=== PATIENT | female | born 1995 | race Caucasian/White ===

== ENCOUNTER 2017-12-14 09:37 | Emergency (ER) | payer MEDICAID, SELFPAY ==
[2017-12-14 09:38] VITALS: BP 118/67; PULSE 64; RESP 16; TEMP 36.6; O2SAT 100; BMI 23.6
--- NOTE | 2017-12-14 09:52 | CT_ITS ---
STUDY: CT ABDOMEN AND PELVIS WITH CONTRAST REASON FOR EXAM: Female, 22 years old. Vomiting and diarrhea. History of Crohn's disease. RADIATION DOSAGE (If Supplied By Facility): CTDIvol = ( 11.8 ) mGy, DLP = ( 677.42 ) mGycm TECHNIQUE: Transaxial images were obtained from the dome of the diaphragm to the symphysis pubis with oral contrast. 100 ml of Isovue 300 contrast was administered. Sagittal and coronal images were reconstructed. Individualized dose optimization techniques were used for this CT. COMPARISON: Comparison is made with prior examination dated July 04, 2016. FINDINGS: The visualized lung bases are unremarkable. The visualized portions of the heart are within normal limits. Normal liver. The patient is status post cholecystectomy. Normal spleen. Normal pancreas. Normal bilateral adrenal glands. Normal right kidney. Normal left kidney. Normal visualized stomach. There is evidence of a marked degree of circumferential wall thickening of the the ileum and terminal ileum with evidence of fluid surrounding the distal small bowel loops as well as fluid in the mesentery and in the pelvis. This is in keeping with recurrent Crohn's disease. This has progressed as compared to prior study. A large amount of fecal material is seen throughout the colon. Scattered sigmoid diverticulosis. There is non-visualization of the appendix. Normal abdominal aorta. Normal inferior vena cava. Normal retroperitoneum. Normal urinary bladder. Normal abdominal wall. Normal osseous structures. CT/Abdomen/Pelvis WITH Contrast IMPRESSION: Diffuse circumferential wall thickening of the ileum and terminal ileum with the thickening of the bowel wall. Fluid is seen in the surrounding mesentery as well as within the pelvis. Recurrent Crohn's disease is suspected. Large amount of fecal material is seen in the colon. Electronically Signed: Uriel Reece MD at 12:30 EDT Tel [phone], Service support ,
--- NOTE | 2017-12-14 10:01 | ED.DCSUM_ITS ---
- ER Visit Summary Date of Service: 12/14/17 Chief Complaint: Abdominal pain, nausea, vomiting, diarrhea History of Present Illness: The patient is a 22 F with history of Crohn's disease presents to the emergency department with worsening abdominal pain. The patient does follow with Dr. Cheatham at the [facility]. She is on Humira injections. Her last injection was 10 days ago. She states over the past 3 days, she has had worsening pain. States is mostly diffusely abdomen. She states that a few bouts of emesis without blood. She has also had some loose watery diarrhea. She denies any blood in the diarrhea. She states she has had some increasing cramping and pain. She denies any fevers or chills. She has had no history of bowel obstruction. The patient did have prior cholecystectomy, but no other abdominal surgery. She states her last prednisone use was about 6 months ago. Physical Examination: Vital signs reviewed General: Well-nourished, well-developed Head: Normocephalic, atraumatic Eyes: Pupils equal and reactive, extraocular muscles intact Neck, supple, no lymphadenopathy Heart: Regular rate and rhythm Respiratory: No distress, clear bilaterally Abdomen: Soft, diffusely tender without rebound or guarding, nondistended, no peritoneal signs Back: Nontender Extremities: Nontender, no edema, no cords Skin: Normal color no rash Neuro: Alert and oriented, no focal or lateralizing deficits Test Results: [] Emergency Department Course and Treatment: IV was established. Patient was given fluids, analgesics, and antiemetics. She did have improvement of her pain. Her labs are unremarkable. With her history of Crohn's, I did want to rule out acute intra-abdominal process. Patient underwent CT with both oral and IV contrast. This does demonstrate progression of her Crohn's. There is no obstruction. There is no perforation. On reevaluation she is resting comfortably. Patient is requesting outpatient management and I feel this is reasonable. She is given a dose of IV Solu-Medrol here. She will be kept on Cipro, analgesics, and prednisone. I did licensed mental health counselor her on the importance of following up with her GI doctor. She will be discharged home. Treatment Plan: [] Disposition: Discharge Impression: Acute Crohn's flare This note was generated with [employer] dictation software. It may contain incorrect words, spelling, and punctuation that were not noted in review of the chart prior to signing ED Disposition - Plan for ED Patient: Chief Complaint: Abd Pain Instructions: ED Inflam Bowel Disease Crohn Prescriptions: Oxycodone HCl/Acetaminophen [Percocet 5/325] 1 tab PO Q6H PRN PRN 3 Days #8 tab PRN Reason: Pain Prednisone [Deltasone] 40 mg PO DAILY #10 tab Ciprofloxacin [Cipro] 500 mg PO BID #14 tab Referrals: Torsten Cazares DO [Primary Care Provider] -
[2017-12-14 10:29] LABS: Absolute Lymphocyte Count 2.52 X10^3/ul (0.83-4.51); Absolute Neutrophil Count 7.1 X10^3/uL (2.0-7.7); Basophil# 0.04 X10^3/uL; Basophil% 0.4 % (0-1); Eosinophil# 0.07 X10^3/uL; Eosinophils% 0.7 % (0-5); Hematocrit 40.1 % (37-47); Hemoglobin 13.3 g/dl (12.0-15.0); Lymphocyte # 2.52 X10^3/ul (4.0); Lymphocyte % 24.7 % (19-41); Mean Corp Hgb Conc 33.2 g/gl (32-36); Mean Corpuscular Hgb 30.1 pg (27.0-32.0); Mean Corpuscular Volume 90.7 fL (81-99); Mean Platelet Vol. 9.1 fl (6.2-12.0); Monocyte# 0.49 X10^3/uL; Monocyte% 4.8 % (0-10); Neutrophil # 7.08 X10^3/uL (2.7-7.7); Neutrophil % 69.3 % (47-70); Platelet Count 246 K/mm3 (150-450); RBC Distribution Width CV 12.6 % (11.6-14.6); RBC Distribution Width SD 42.2 fl (35.1-43.9); Red Blood Count 4.42 M/mm3 (4.2-5.4); White Blood Count 10.2 K/mm3 (4.4-11.0)
[2017-12-14] MEDS: Ondansetron 4 MG/2 ML Vial IV (10:31)
[2017-12-14] MEDS: Morphine 4 MG/ML Syringe IV ×2 (10:32→12:47)
[2017-12-14] MEDS: 0.9% Normal Saline 1,000 ML 1000 ML IV (10:32)
[2017-12-14 10:38] LABS: POSITIVE COUNT NO; POSITIVE DIFFERENTIAL NO; POSITIVE MORPHOLOGY NO
[2017-12-14 10:42] LABS: ALB/GLOB Ratio 0.9 RATIO (0.9-2.4); AST(SGOT) 14 U/L (15-37); Alanine Aminotransfer ALT/SGPT 19 U/L (13-56); Albumin, Serum 3.7 g/dL (3.2-5.0); Alkaline Phosphatase 46 U/L (45-117); Anion Gap 6 (5-15); BUN 10 mg/dL (7-18); BUN/Creat Ratio 11.1 RATIO (10-20); Calcium,Total 8.8 mg/dL (8.5-10.1); Chloride 105 mmol/L (98-107); EST Glomerular Filtration Rate 81 mL/min (>60); Est Glom Filt Rate - Afr Amer 98 mL/min (>60); Estimated Creatinine Clearance 72.73 ml/min; Globulin 4.2 g/dL (2.2-4.2); Glucose 78 mg/dL (74-106); Potassium 4.1 mmol/L (3.5-5.1); Protein, Total 7.9 g/dL (6.4-8.2); Sodium Level 137 mmol/L (136-145)
--- NOTE | 2017-12-14 10:44 | ED.RN ---
TALKED TO [facility]. THEY SAID THEY ARE WAITING ON A FEMALE BED. HOPING TO HAVE A DISCHARGE TODAY.
[2017-12-14 11:09] LABS: Internal QC Validated? YES +Cl - CLEAR BKGD
[2017-12-14 11:10] LABS: Color, Urine Straw (Yellow); Glucose, Dipstick Normal (Normal); Ketone-Dipstick 5 mg/dl (Negative); Leukocyte Esterase-Dipstick 25 /ul (Negative); Nitrite-Dipstick Negative (Negative); Occult Blood-Urine 10 /ul (Negative); Protein-Dipstick Negative (Negative); Urine Bilirubin Dipstick Negative (Negative); Urine Clarity Clear (Clear); Urine Urobilinogen Normal (Normal)
[2017-12-14 11:13] LABS: Pregnancy, Urine Negative Negative
[2017-12-14 11:18] LABS: Bacteria RARE /hpf (None Seen); Mucous, Urine RARE /hpf (<or=2+); Red Blood Cells-Urine 0-5 SEEN /hpf (0-5); Squamous Epithelial Cells - UA 0-5 SEEN /hpf (5-10); White Blood Cells 0-5 SEEN /hpf (0-5)
[2017-12-14 12:00] VITALS: RESP 16
[2017-12-14] MEDS: MethylPREDNISolone 125 MG/2 ML Vial 80 MG IV (12:37)
[2017-12-14 13:46] VITALS: BP 112/63; PULSE 71; RESP 16; O2SAT 98
--- NOTE | 2017-12-14 13:47 | ED.RN ---
REVIEWED D/C INSTRUCTIONS, FOLLOW UP CARE, PRESCRIPTIONS, AND S/S THAT WOULD WARRANT A RETURN TO THE ED WITH PT. PT VERBALIZED AN UNDERSTANDING AND DENIES FURTHER QUESTIONS FOR THIS RN. PT SKIN P/W/D, RESP EVEN AND UNLABORED, PT A&O X 3, NO DISTRESS NOTED. PT AMBULATED OUT OF ED, GAIT STEADY.
== END 2017-12-14 13:48 | disposition home or self-care (01) ==
PROVIDERS: Emergency Provider Emergency Medicine; Family Provider Student in an Organized Health Care Education/Training Program; PCP Student in an Organized Health Care Education/Training Program
DX: K50.90 Crohn's disease, unspecified, without complications (principal); Z79.899 Other long term (current) drug therapy; Z90.49 Acquired absence of other specified parts of digestive tract
CPT/HCPCS: 74177; 80053; 81001; 81025; 85025; 96361; 96374; 96375; 96376; 99283; J7030; Q9967; A4216; J2405

== ENCOUNTER 2018-04-21 14:53 | Emergency (ER) | payer MEDICAID, SELFPAY ==
[2018-04-21 14:54] VITALS: BP 152/95; PULSE 79; RESP 16; TEMP 36.6; O2SAT 99; BMI 22.8
--- NOTE | 2018-04-21 15:08 | EKG12_ITS ---
Test Reason : CP Blood Pressure : / mmHG Vent. Rate : 075 BPM Atrial Rate : 075 BPM P-R Int : 134 ms QRS Dur : 084 ms QT Int : 384 ms P-R-T Axes : 056 045 035 degrees QTc Int : 428 ms Normal sinus rhythm with sinus arrhythmia Normal ECG Confirmed by TANNER GOLDBERG, RAVI ([id number]), editorial cartoonist NELIDA WEINBERG ([id number]) on 04/27/2018 2:41:59 PM Referred By: GABRIEL Confirmed By:RAVI HART MD
--- NOTE | 2018-04-21 15:10 | RAD_ITS ---
STUDY: X-RAY CHEST REASON FOR EXAM: Female, 23 years old. Chest pain. TECHNIQUE: Single AP portable view of the chest. COMPARISON: None. FINDINGS: The lungs are clear and expanded. There is no demonstrated pleural abnormality. Normal size heart. Normal mediastinum and kimberli. Normal visualized pulmonary arteries. Normal visualized aortic arch and descending thoracic aorta. Normal visualized thoracic spine. Normal visualized ribs, clavicles, and shoulders. There is no demonstrated abnormality of the visualized soft tissue structures of the upper abdomen. RAD/Chest 1 View (Portable) IMPRESSION: Normal x-ray examination of the chest. Electronically Signed: Uriel Reece MD at 15:41 EST , Service support ,
--- NOTE | 2018-04-21 15:12 | ED.VISSUMM ---
- ER Visit Summary Date of Service: 04/21/18 Chief Complaint: Chest pain History of Present Illness: The patient is a 23 F with a four-day history of intermittent chest pain. She describes it as sharp. It is mostly under the left breast, but sometimes on the right side of her chest. She does not feel short of breath. She has not had cough. She does report having a recent sinus infection. Physical Examination: Vital signs significant for blood pressure 152/95, otherwise unremarkable. Patient sitting upright in bed no acute distress. She is nontoxic appearing. Head neck examination is unremarkable. Heart is regular rate and rhythm. No murmurs. Lungs sounds are clear. She has mild reproducible anterior chest wall tenderness. No crepitus. Abdomen is soft nontender. Extremity examination was no calf tenderness or edema. Test Results: EKG is sinus at 75 with no sign of acute ischemia. CBC and chemistry studies normal. Troponin negative. D-dimer less than 0.27. test negative. Portable chest x-ray is unremarkable. Emergency Department Course and Treatment: Test results are discussed with the patient. I believe she likely has costochondritis from her recent sinus infection. She will be treated with a 4-day steroid burst. Treatment Plan: [] Disposition: Discharge Impression: Costochondritis This note was generated with [employer] dictation software. It may contain incorrect words, spelling, and punctuation that were not noted in review of the chart prior to signing ED Disposition - Plan for ED Patient: Chief Complaint: Chest Pain Referrals: Torsten Cazares DO [Primary Care Provider] -
[2018-04-21 15:35] VITALS: O2SAT 100
[2018-04-21] MEDS: 0.9% Normal Saline 1,000 ML 150 ML IV (15:39)
[2018-04-21 15:45] LABS: Absolute Lymphocyte Count 2.57 X10^3/ul (0.83-4.51); Absolute Neutrophil Count 3.3 X10^3/uL (2.0-7.7); Basophil# 0.05 X10^3/uL; Basophil% 0.8 % (0-1); Eosinophil# 0.04 X10^3/uL; Eosinophils% 0.6 % (0-5); Hematocrit 39.5 % (37-47); Hemoglobin 13.2 g/dl (12.0-15.0); Lymphocyte # 2.57 X10^3/ul (4.0); Lymphocyte % 40.6 % (19-41); Mean Corp Hgb Conc 33.4 g/gl (32-36); Mean Corpuscular Hgb 30.2 pg (27.0-32.0); Mean Corpuscular Volume 90.4 fL (81-99); Mean Platelet Vol. 9.2 fl (6.2-12.0); Monocyte# 0.41 X10^3/uL; Monocyte% 6.5 % (0-10); Neutrophil # 3.25 X10^3/uL (2.7-7.7); Neutrophil % 51.3 % (47-70); Platelet Count 249 K/mm3 (150-450); RBC Distribution Width CV 12.1 % (11.6-14.6); RBC Distribution Width SD 39.3 fl (35.1-43.9); Red Blood Count 4.37 M/mm3 (4.2-5.4); White Blood Count 6.3 K/mm3 (4.4-11.0)
[2018-04-21 15:48] LABS: POSITIVE COUNT NO; POSITIVE DIFFERENTIAL NO
[2018-04-21 15:49] LABS: POSITIVE MORPHOLOGY NO
[2018-04-21 16:05] LABS: Anion Gap 9 (5-15); BUN 13 mg/dL (7-18); BUN/Creat Ratio 14.9 RATIO (10-20); Calcium,Total 9.1 mg/dL (8.5-10.1); Chloride 105 mmol/L (98-107); Creatinine, Serum 0.87 mg/dL (0.55-1.02); EST Glomerular Filtration Rate 84 mL/min (>60); Est Glom Filt Rate - Afr Amer 102 mL/min (>60); Estimated Creatinine Clearance 78.18 ml/min; Glucose 120 mg/dL (74-106); Potassium 3.8 mmol/L (3.5-5.1); Sodium Level 138 mmol/L (136-145)
[2018-04-21 16:26] LABS: Pregnancy, Serum, hCG Quali. NEGATIVE Negative (0-9 Nonpreg)
[2018-04-21 16:36] LABS: D-Dimer Quantitative (DVT/PE) < 0.27 FEU/ug/m (0.27-0.49)
--- NOTE | 2018-04-21 16:39 | ED.DEP ---
ED Disposition - Plan for ED Patient: Disposition: Home or Assisted Living Chief Complaint: Chest Pain Instructions: ED Chest Pain Costochondritis Prescriptions: predniSONE tablet 40 mg PO DAILY #8 tablet Referrals: Torsten Cazares DO [Primary Care Provider] - 1 Week if not improving
[2018-04-21 16:49] VITALS: BP 113/82; PULSE 85; RESP 18; O2SAT 99
[2018-04-21] MEDS: predniSONE 20 MG Tablet 40 MG PO (16:50)
--- NOTE | 2018-04-21 17:03 | ED.DEP ---
ED Disposition - Plan for ED Patient: Disposition: Home or Assisted Living Chief Complaint: Chest Pain Instructions: ED Chest Pain Costochondritis Prescriptions: Methylprednisolone [Medrol] 4 mg PO DAILY #1 pack Referrals: Torsten Cazares DO [Primary Care Provider] - 1 Week if not improving
--- OUTSIDE RECORDS SUMMARY | 2018-06-23 17:40 | XMS RPT_ITS ---
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 / Z20.2(ICD-10) 01/13/2018 Active Unknown / Muriel CHEATHAM [facility] UNK(Unknown) JAY [place] Repository 12/14/2017 Unknown K50.10 - Crohn's Ramirez Hackett Active [place] disease of large Community intestine without Hospital complications / Repository K50.10(ICD-10) PROCEDURES PROCEDURES No Procedure Records FoundRESULTS RESULTS 12 LEAD ELECTROCARDIOGRAM Observed: 04/27/2018 Status: F Source: [place] 2:42 PM [facility] REPOSITORY [facility] Cardiovascular Services [address] [place] [address] 12 Lead EKG 04/21/18 1502 MR#: [id number] Acct: [id number] Name: JOAN HANSON Rep #: [id number] : 1995 23 From: Dave Hart MD Attending Dr: Status: DEP ER Ordering Dr: Hayde Haile MD Date: 04/21/18 Location: ED Sex: F C Admitted: Test Reason : CP Blood Pressure : / mmHG Vent. Rate : 075 BPM Atrial Rate : 075 BPM P-R Int : 134 ms QRS Dur : 084 ms QT Int : 384 ms P-R-T Axes : 056 045 035 degrees QTc Int : 428 ms Normal sinus rhythm with sinus arrhythmia Normal ECG Confirmed by TANNER GOLDBERG, DAVE ([id number]), supervising editor trailer NELIDA WEINBERG ([id number]) on 04/27/2018 2:41:59 PM Referred By: GABRIEL Confirmed By:DAVE HART MD 04/27/18 1442 Date Dave Hart MD CC: Hayde Haile MD; Torsten Art DO Signed EMERGENCY DEPARTMENT Observed: 04/21/2018 Status: F Source: [place] SUMMARY 11:12 PM [facility] REPOSITORY [facility] Medical Records Department [address] [place] [address] Emergency Department Summary 04/21/18 1512 MR#: [id number] Acct: [id number] Name: JOAN HANSON Rep #: [id number] : 1995 23 From: Hayde Haile MD PCP: Torsten Art DO Status: DEP ER - ER Visit Summary Date of Service: 04/21/18 Chief Complaint: Chest pain History of Present Illness: The patient is a 23 F with a four- day history of intermittent chest pain. She describes it as sharp. It is mostly under the left breast, but sometimes on the right side of her chest. She does not feel short of breath. She has not had cough. She does report having a recent sinus infection. Physical Examination: Vital signs significant for blood pressure 152/95, otherwise unremarkable. Patient sitting upright in bed no acute distress. She is nontoxic appearing. Head neck examination is unremarkable. Heart is regular rate and rhythm. No murmurs. Lungs sounds are clear. She has mild reproducible anterior chest wall tenderness. No crepitus. Abdomen is soft nontender. Extremity examination was no calf tenderness or edema. Test Results: EKG is sinus at 75 with no sign of acute ischemia. CBC and chemistry studies normal. Troponin negative. D-dimer less than 0.27. test negative. Portable chest x-ray is unremarkable. Emergency Department Course and Treatment: Test results are discussed with the patient. I believe she likely has costochondritis from her recent sinus infection. She will be treated with a 4-day steroid burst. Treatment Plan: [] Disposition: Discharge Impression: Costochondritis This note was generated with Emcore dictation software. It may contain incorrect words, spelling, and punctuation that were not noted in review of the chart prior to signing ED Disposition - Plan for ED Patient: Chief Complaint: Chest Pain Referrals: Torsten Cazares DO [Primary Care Provider] - What to do if you have Problems For any increased pain, shortness of breath, bleeding, nausea or vomiting, chest pain, or any unexpected problems, contact your Primary Care Provider. Call [facility] ([phone]) or report to the closest Emergency Room. Call 911 if necessary. 04/21/18 2312 <Electronically signed by Hayde Haile MD> Date Hayde Haile MD Cosigner Signature (If Indicated): Date CC: Torsten Art DO DISCHARGE INSTRUCTION Observed: 04/21/2018 Status: F Source: [place] 5:06 PM [facility] REPOSITORY [facility] Medical Records Department [address] [place] [address] Discharge Instruction 04/21/18 1703 MR#: [id number] Acct: [id number] Name: JOAN HANSON Rep #: [id number] : 1995 23 From: Hayde Haile MD PCP: Torsten Art DO Status: REG ER ED Disposition - Plan for ED Patient: Disposition: Home or Assisted Living Chief Complaint: Chest Pain Instructions: ED Chest Pain Costochondritis Prescriptions: Methylprednisolone [Medrol] 4 mg PO DAILY #1 pack Referrals: Torsten Cazares DO [Primary Care Provider] - 1 Week if not improving What to do if you have Problems For any increased pain, shortness of breath, bleeding, nausea or vomiting, chest pain, or any unexpected problems, contact your Primary Care Provider. Call [facility] ([phone]) or report to the closest Emergency Room. Call 911 if necessary. 04/21/18 1706 <Electronically signed by Hayde Haile MD> Date Hayde Haile MD Cosigner Signature (If Indicated): Date CC: Torsten Art DO DISCHARGE INSTRUCTION Observed: 04/21/2018 Status: F Source: [place] 4:40 PM [facility] REPOSITORY [facility] Medical Records Department [address] [place] [address] Discharge Instruction 04/21/18 1639 MR#: [id number] Acct: [id number] Name: JOAN HANSON Rep #: [id number] : 1995 23 From: Hayde Haile MD PCP: Torsten Art DO Status: REG ER ED Disposition - Plan for ED Patient: Disposition: Home or Assisted Living Chief Complaint: Chest Pain Instructions: ED Chest Pain Costochondritis Prescriptions: predniSONE tablet 40 mg PO DAILY #8 tablet Referrals: Torsten Cazares DO [Primary Care Provider] - 1 Week if not improving What to do if you have Problems For any increased pain, shortness of breath, bleeding, nausea or vomiting, chest pain, or any unexpected problems, contact your Primary Care Provider. Call [facility] ([phone]) or report to the closest Emergency Room. Call 911 if necessary. 01/23/19 1640 <Electronically signed by Hayde Haile MD> Date Hayde Haile MD Cosigner Signature (If Indicated): Date CC: Torsten Art, DO CBC W/DIFF, AUTOMATED Collected: 04/21/2018 Status: F Source: [place] 3:30 PM [facility] REPOSITORY TYPE CODE TESTS RESULT OUT OF RANGE REFERENCE UNITS LAB L100.1000 4.4-11.0 K/mm3 Normal WBC 6.3 LAB L100.1200 4.2-5.4 M/mm3 Normal RBC 4.37 LAB L100.1300 12.0-15.0 g/dl Normal HGB 13.2 LAB L100.1400 37-47 % Normal HCT 39.5 LAB L100.1500 81-99 fL Normal MCV 90.4 LAB L100.1600 27.0-32.0 pg Normal MCH 30.2 LAB L100.1700 32-36 g/gl Normal MCHC 33.4 LAB L100.1810 11.6-14.6 % Normal RDW CV 12.1 LAB L100.1820 35.1-43.9 fl Normal RDW SD 39.3 LAB L100.1900 150-450 K/mm3 Normal PLT 249 LAB L100.2000 6.2-12.0 fl Normal MPV 9.2 LAB L100.2100 47-70 % Normal NEUT% 51.3 LAB L100.2200 19-41 % Normal LY% 40.6 LAB L100.2300 0-10 % Normal MONO% 6.5 LAB L100.2400 0-5 % Normal EO% 0.6 LAB L100.2500 0-1 % Normal BASO% 0.8 LAB L100.2550 0.0-0.9 % Normal IM GRAN % 0.200 Result Comment: IG% - Immature Granulocytes (promyelocytes, myelocytes and metamyelocytes) > 1% indicates that a LEFT SHIFT is Present. LAB L100.2620 2.0-7.7 X10 3/uL Normal Absolute Neut 3.3 LAB L100.2720 0.83-4.51 X10 3/ul Normal Absolute Lymph 2.57 Performed By: #### L100.0100 #### [facility] [address] [place], [address] BASIC METABOLIC Collected: 04/21/2018 Status: F Source: [place] PROFILE (BMP) 3:30 PM [facility] REPOSITORY TYPE CODE TESTS RESULT OUT OF RANGE REFERENCE UNITS LAB L501.0100 74-106 mg/dL High GLU 120 Result Comment: Fasting Glucose result from 100 to 125 mg/dL suggests IMPAIRED HOMEOSTASIS per A.D.A. criteria. Please note revised GLUCOSE reference range effective 2017. LAB L501.1000 7-18 mg/dL Normal BUN 13 LAB L501.1100 0.55-1.02 mg/dL Normal CREAT,SERUM 0.87 Result Comment: The validity of the calculated GFR AND GFRAA in patients over 70 years has not been determined. Clinical correlation is essential. LAB L501.1110 >60 mL/min Normal EST GFR 84 Result Comment: Non- GFR Calc LAB L501.1115 >60 mL/min Normal EST GFR - AA 102 Result Comment: GFR Calc LAB L501.1255 ml/min Normal Estimated CRCL 78.18 LAB L501.1300 10-20 RATIO Normal BUN/CRE 14.9 LAB L501.2200 8.5-10 mg/dL Normal .1 CA 9.1 LAB L501.5300 136-14 mmol/L Normal 5 NA 138 LAB L501.5600 3.5-5. mmol/L Normal 1 K 3.8 LAB L501.5900 98-107 mmol/L Normal CL 105 LAB L501.6100 21.0-3 mmol/L Normal 2.0 CO2 24.0 LAB L501.6200 5-15 Normal GAP 9 Performed By: #### L500.2500, L501.4010 #### [facility] [address] [place], [address] TROPONIN-I Collected: 04/21/2018 Status: F Source: [place] 3[facility] PM [facility] TYPE CODE TESTS RESULT OUT OF RANGE REFERENCE UNITS LAB L501.4010 <0.045 ng/mL Normal < 0.015 TROPONIN-I Result Comment: TROPONIN-I EXPECTED VALUES <0.045 Negative 0.045 - 0.590 Consistent with Cardiac Damage > OR = 0.600 Critical Value Not every elevated troponin is indicative of AR. These values should be used with clinical judgement in examining the patient's clinical picture for diagnosis. To establish a diagnosis of AR versus myocardial injury, there must be a demonstrated rise and/or fall in the troponin values, in addition to ischemic symptoms, EKG changes, new regional wall motion abnormality, and/or angiographical evidence. PLEASE NOTE: REFERENCE RANGES EDITED 17 Performed By: #### L500.2500, L501.4010 #### [facility] [address] [place] [address], [phone] ,SERUM,HCG QUALI. Collected: Status: F Source: [place] 04/21/2018 3:30 PM [facility] REPOSITORY TYPE CODE TESTS RESULT OUT OF REFERENCE UNITS RANGE LAB L700.7000 0-9 Nonpreg Negative Normal HCGSQUAL NEGATIVE LAB L700.6700 =>Qualitative mIU/mL Normal HCG Qual < 1 triggr Performed By: #### L700.6800 #### [facility] [address] [place] [address], [phone] D-DIMER QUANTITATIVE Collected: 04/21/2018 Status: F Source: [place] (DVT/PE) 3:30 PM [facility] REPOSITORY TYPE CODE TESTS RESULT OUT OF RANGE REFERENCE UNITS LAB L300.8000 0.27-0.49 FEU/ug/m Low D-DIMER < 0.27 QUANT Result Comment: NORMAL D-Dimer level (<0.50) indicates no DVT or PE. Performed By: #### L300.8000 #### [facility] [address] [place] [address], [phone] CHEST 1 VIEW Observed: 04/21/2018 Status: F Source: [place] (PORTABLE) 3:10 PM [facility] REPOSITORY [facility] Imaging Services [address] [place] [address] Chest 1 View (Portable) MR#: [id number] Acct: [id number] Name: JOAN HANSON Rep #: [id number] : 1995 F 23 From: Uriel Reece MD PCP: Torsten Art DO Status: REG ER Study: Chest 1 View (Portable) Date of Exam: 04/21/18 Exam# [id number] Ordering Dr: Hayde Haile MD STUDY: X-RAY CHEST REASON FOR EXAM: Female, 23 years old. Chest pain. TECHNIQUE: Single AP portable view of the chest. COMPARISON: None. FINDINGS: The lungs are clear and expanded. There is no demonstrated pleural abnormality. Normal size heart. Normal mediastinum and kimberli. Normal visualized pulmonary arteries. Normal visualized aortic arch and descending thoracic aorta. Normal visualized thoracic spine. Normal visualized ribs, clavicles, and shoulders. There is no demonstrated abnormality of the visualized soft tissue structures of the upper abdomen. RAD/Chest 1 View (Portable) IMPRESSION: Normal x-ray examination of the chest. Electronically Signed: Uriel Reece MD at 15:41 EST , Service support , CC: Hayde Haile MD; Torsten Art DO Production Machine Operator: Signed GC/CHLAMYDIA AMP, UR Collected: 04/02/2018 Status: F Source: [place] 10:48 AM [facility] REPOSITORY TYPE CODE TESTS RESULT OUT OF REFERENCE UNITS RANGE LAB UGCAMP GC Negative Amplification, for Neisseria Ur gonorrhoeae by amplification. LAB UCLAMP Negative Chlamydia for Chlamydia Amplif, Ur trachomatis by amplification. Result Comment: For screening asymptomatic women, a vaginal swab specimen (APTIMA vaginal swab 134842) is optimal. Urine specimens have reduced sensitivity for Chlamydia trachomatis or Neisseria gonorrh oeae infection in female patients without symptoms. This test was developed and its performance characteristics determined by [facility]'s [facility] [place] ([facility]). It has not been cleared or approved by the FDA. [facility] is regulated under CLIA as qualified to perform high-complexity testing. This test is used for clinical purposes. It should not be regarded as investigational or for research. Performed By: #### UGCCT #### [facility] [address] [place], [place] [address] COMP METABOLIC PANEL Collected: 04/02/2018 Status: F Source: [place] 10:46 AM [facility] REPOSITORY TYPE CODE TESTS RESULT OUT OF REFERENCE UNITS RANGE LAB TP 6.3-8.0 g/dL Protein, High Total 8.2 LAB ALB 3.9-4.9 g/dL Albumin 4.7 LAB CA 8.5-10.2 mg/dL Calcium, Total 10.0 LAB TBIL 0.2-1.3 mg/dL Bilirubin, Total 0.3 LAB ALKP 34-123 U/L Alkaline Phosphatase 36 LAB AST 13-35 U/L AST 18 LAB GLU 74-99 mg/dL Glucose 84 Result Comment: The [place] Diabetes Association (ADA) provides guidance for cutoff values for fasting glucose and random glucose. The ADA defines fasting as no caloric intake for at least 8 hours. Fas ting plasma glucose results between 100 to 125 mg/dL indicate increased risk for diabetes (prediabetes). Fasting plasma glucose results greater than or equal to 126 mg/dL meet the criteria for diagnosis of diabetes. In the absence of unequivocal hyperglycemia, results should be confirmed by repeat testing. In a patient with classic symptoms of hyperglycemia or hyperglycemic crisis, random plasma glucose results greater than or equal to 200 mg/dL meet the criteria for diagnosis of diabetes. Reference: Standards of Medical Care in Diabetes 2016, [place] Diabetes Association. Diabetes Care. 2016.39(Suppl 1). LAB BUN 7-21 mg/dL BUN 9 LAB CRET 0.58-0.96 mg/dL Creatinine 0.89 LAB NA 136-144 mmol/L Sodium 137 LAB K 3.7-5.1 mmol/L Potassium 3.7 LAB CL 97-105 mmol/L Chloride 100 LAB CO2 22-30 mmol/L CO2 24 LAB AGAP 9-18 mmol/L Anion Gap 13 LAB ALT 7-38 U/L ALT 15 LAB GFRAA eGFR- Amer. >60 LAB GFRNAA . eGFR-All Other Races >60 Result Comment: eGFR (Estimated GFR) Units of measure: mL/min/1.73 meters squared eGFR is derived from the reexpressed MDRD Study equation using the following parameters: serum creatinine, age, gender and race. The creatinine assay has been calibrated to be traceable to IDMS. An eGFR <60 mL/min/1.73m2 for >3 months is consistent with chronic kidney disease. Refer to KDOQI guidelines for clinical interpretation. In patients with unstable renal function, e.g. those with acute kidney injury, the eGFR may not accurately reflect actual GFR. Performed By: #### CMP, SYPHGX, HIV12C #### [facility] [address] [id number] SYPHILIS IGG WITH Collected: 04/02/2018 Status: F Source: [facility] 10:46 [facility] REPOSITORY TYPE CODE TESTS RESULT OUT OF REFERENCE UNITS RANGE LAB SYPHQL Nonreactive Syphilis IgG, Nonreactive Qual Result Comment: No serological evidence of infection with T. pallidum. LAB SYPHLG AI Syphilis IgG <0.2 Result Comment: Antibody index is interpreted as follows: Non reactive SPECIMENS <=0.8 Weak reactive SPECIMENS 0.9 to 5.9 Reactive SPECIMENS >=6.0 Performed By: #### CMP, SYPHGX, HIV12C #### [facility] [address] [address] HIV 12 COMBO (AG/AB) Collected: 04/02/2018 Status: F Source: [place] 10:46 [facility] REPOSITORY TYPE CODE TESTS RESULT OUT OF REFERENCE UNITS RANGE LAB HVAGAB Non Reactive HIV Non Reactive 12 Ag/Ab Result Comment: (NOTE) HIV Information: [place] Rev. Code 3701.243(E): This information has been disclosed to you from confidential records protected from disclosure by state law. You shall make no further disclosure of this information without the specific, written, and informed release of the individual to whom it pertains, or as otherwise permitted by state law. A general authorization for the release of medical or other information is not sufficient for the purpose of the release of HIV test results or diagnoses. Performed By: #### CMP, SYPHGX, HIV12C #### [facility] [address] [place], [place] [address] HEPATITIS REMOTE PANEL Collected: 04/02/2018 Status: F Source: [place] 10:46 AM [facility] REPOSITORY TYPE CODE TESTS RESULT OUT OF REFERENCE UNITS RANGE LAB AHBCOT Negative Hep B Core Ab,Total Negative LAB AHCV Negative Hepatitis C Ab Negative IA LAB HBSAGR Negative HBsAg Negative LAB AHBSAG Negative HepB Surface Ab,Qual Negative Result Comment: NEGATIVE Performed By: #### HREMOP #### [facility] [address] [place], [place] [address] CNOV Observed: 04/02/2018 Status: COMPLETED Source: [place] 10:20 AM [facility] REPOSITORY Office Visit (FAMPWS) JOAN HANSON ([id number]) 1995 F Date Time Provider Department 04/02/18 10:20 AM [facility] During your visit today, we recorded the following information about you: Pulse Respiration Blood pressure Weight 74/minute 14/minute 140/80 58.5 kg Tanvi Francis APRN.CNP 04/02/2018 11:14 AM Signed This is a 23 year old female who presents today with: Patient presents with: std check HISTORY OF PRESENT ILLNESS: Joan Hanson is a 23 year old female. Patient presents with: std check Pt presents today for STD testing. Refers that she got a call from her ex-boyfriend that he was dx with hepatitis. Refers they were together over a year. Broke up two weeks ago. Was sexually active. Pt reports she doesn't have a hx of drug use, but that he had a hx of drug use, which he started back up -- so she broke up with him. Refers that she has chronic stomach problems d/t crohns, but nothing out of the ordinary. Refers that she also thinks that she has a sinus infection. Refers that she has a bad sinus headache. Refers that this started about 10 days, and nothing has changed. On Humira for crohn's. Taking OTC sudafed. Using humidifier. Refers a lot of PND. + frontal pain. No sore throat. No ear pain. + chills. Blowing dark mucus. No cough. Has been nauseated all morning. PAST MEDICAL HISTORY: PAST MEDICAL HISTORY Diagnosis Date - Anemia - Costochondritis - Crohn's disease (HCC) 01/2013 Dr. Cheatham PAST SURGICAL HISTORY Procedure Laterality Date - COLONOSCOPY 01/2013 - EGD 01/11/13 - L'SCOPE IDA W/CHOLANGIOGRAPHY 12/07/12 normal IOC - REMOVAL OF TONSILS,<10 Y/O 2002 Tonsillectomy ALLERGIES Patient has no known allergies. MEDICATIONS Current Outpatient Prescriptions: predniSONE (DELTASONE) 20 mg tablet Take 1 tablet by mouth twice daily. Adalimumab (HUMIRA PEN) 40 mg/0.8 mL pnkt INJECT 1 PEN (40MG) SUBCUTANEOUSLY EVERY 2 WEEKS. Levonorgestrel-Ethinyl Estrad (SRONYX) 0.1mg - 20mcg per tablet Take 1 tablet by mouth once daily. Adalimumab (HUMIRA PEN) 40 mg/0.8 mL pnkt Inject 0.8 mL subcutaneously every 2 weeks. No current facility-administered medications for this visit. FAMILY HISTORY Problem Relation Age of Onset - Hypertension Father - Diabetes Father - Ischemic Heart Disease Maternal Grandfather - Diabetes Maternal Grandfather - Cancer Maternal Grandfather lung - Stroke Mother when - Diabetes Maternal Grandmother - Diabetes Paternal Grandmother - Diabetes Paternal Grandfather Social History Marital status: Single Spouse name: Years of education: Number of children: 0 Social History Main Topics Smoking status: Never Smoker Smokeless tobacco: Never Used Comment: Both parents smoked in childhood home. Alcohol use: No Drug use: No Sexual activity: Yes Partners with: Male control/protection: Condom, Pill EXAM: BP 140/80 (BP Site: Left Arm, BP Position: Sitting, BP Cuff Size: Regular Adult) Pulse 74 Resp 14 Wt 58.5 kg (129 lb) BMI 23.98 kg/m? PHYSICAL EXAM: General Appearance: Well appearing, alert, in no acute distress, well-hydrated, well nourished.. Skin: Skin color, texture, turgor normal, no suspicious rashes or lesions. Head: Normocephalic, no masses, lesions, tenderness or abnormalities. Eyes: Anicteric sclera. Pupils are equally round and reactive to light. Extraocular movements are intact. . Ears: External ears normal, canals clear, Normal TMs bilaterally. Nose/Sinuses: Nares normal, septum midline, mucosa normal, no drainage. + frontal facial tenderness. Oropharynx: Lips, mucosa, and tongue normal, teeth and gums normal, oropharynx normal. Neck: Supple, no adenopathy Lungs: lungs clear to auscultation. No wheezing, rhonchi, rales. Heart: RRR without murmur, gallop, or rubs. No ectopy. Neurologic: Gait normal. ASSESSMENT/PLAN: 1. Exposure to venereal disease - ICD9: V01.6, ICD10: Z20.2 (primary diagnosis) Exposure to hepatitis. Will check labs. Discussed with patient, if negative, she should repeat testing in 3 months. - HEPATIC FUNCTION PNL - COMP METABOLIC PANEL - SYPHILIS IGG WITH CONF - HIV 1,2 COMBO (AG/AB) - GC/CHLAMYDIA AMPLIF, URINE - HEP REMOTE PANEL BL 2. Acute non-recurrent frontal sinusitis - ICD9: 461.1, ICD10: J01.10 - Will begin treatment with Augmentin 875 mg PO BID for 10 days, especially since immunocompromised d/t humira. - The patient should also be given OTC decongestants prn for the first 5-7 days of treatment. - Supportive care with plenty of fluids, rest, and analgesia prn. - AMOXICILLIN 875 MG-POTASSIUM CLAVULANATE 125 MG TABLET 3. Need for vaccination - ICD9: V05.9, ICD10: Z23 She will return after completing the antibiotic for the flu shot. - INFLUENZA VACCINE QUADRIVALENT AGE 3 YRS PLUS + IM Discussed treatment plan and patient voices understanding. Patient's questions answered appropriately. Medications and potential side effects were discussed and patient voices understanding. Return to the office as scheduled or as needed for worsening/no improvement. Tanvi Francis APRN.HANY Francis APRN.HANY 04/02/2018 10:28 AM Signed 1. Get labwork today. 2. Start augmentin twice daily X 10 days. 3. Return for flu shot after completing antibiotic. Get plenty of rest. Force fluids daily with water and juices. Nasal saline spray may help to keep nose open and moist: 2- 3 squirts each side every few hours. This also help to rinse out virus and bacteria causing infection. Cool mist humidifier in room during sleep. May use OTC Tylenol as direct for discomfort. For sore throat, warm salt water gargles, Chlorseptic spray, lozenges or other OTC sore throat remedies may help. Decongestants such as plain Sudafed or with expectorant such as Mucinex D may help with nasal stuffiness or facial and sinus pressure. Generics are fine. These are over the counter but require an adult signature. Oxymetolazine nasal decongestants (Afrin, Dristan, Codey's) may also help (in place of oral decongestants) but should not be used longer than 48-72 hours due to potential rebound congestion. OTC antihistamines such Benadryl (make cause drowsiness) or Zyrtec/ Clariten/ Elizabeth (non-drowsy) may help watery nasal drainage though they are generally not recommended because they dry mucus and make it sticky. The flow of mucus is important to help your body rid the virus. If cough keeps you awake at night, try OTC remedies first, such as Nyquil, Delsym, Codey's 44 or Mucinex DM. If this doesn't help you sleep, call the office for a prescription. Be careful if you are combining cough and cold medications that you aren't doubling the medicines. If you aren't sure: ask the pharmacist for help. Cough or sneeze into your sleeve to prevent spread of infected secretions. Wash your hands frequently. Try not to cough or sneeze on surfaces others might touch. If symptoms fail to improve in 5-7 days, fever > 100.5F, general worsening, or other concerning symptoms, return to [facility] or Torsten Cazares DO. Referring Provider: SELF [[id number]] Allergies As of Date: 04/02/2018 (No Known Allergies) Date Reviewed: 04/02/2018 Reviewed by: Reny Minaya Risk Manager - Fully Assessed Reason for Visit: std check [Other] Imm/Inj [58] Cmt: Flu Vaccine Reason For Visit History Recorded Primary Visit Diagnosis:Exposure to venereal disease [Z20.2] Other Visit Diagnoses:Acute non-recurrent frontal sinusitis [J01.10] Need for vaccination [Z23] Order(s):COMP METABOLIC PANEL [SQCMP] Order #: [id number] FUTURE SYPHILIS IGG WITH CONF [SQSYPHGX] Order #: [id number] FUTURE HIV 1,2 COMBO (AG/AB) [SQHIV12] Order #: [id number] FUTURE GC/CHLAMYDIA AMPLIF, URINE [SQUGCCT] Order #: [id number] FUTURE amoxicillin-clavulanic acid (AUGMENTIN) 875-125 mg per tabletTake 1 tablet by mouth twice daily for 10 days.Disp: 20 tabletRfl: 0 INFLUENZA VACCINE QUADRIVALENT AGE 3 YRS PLUS + IM [[id number]] Order #: [id number] FUTURE HEP REMOTE PANEL BL [SQHREMOP] Order #: [id number] FUTURE Prescriptions as of 04/02/2018 Sig: ADALIMUMAB 40 MG/0.8 ML SUBCU* INJECT 1 PEN (40MG) SUBCUTANE* LEVONORGESTREL-ETHINYL ESTRAD* Take 1 tablet by mouth once d* AMOXICILLIN 875 MG-POTASSIUM * Take 1 tablet by mouth twice * Medication notes this encounter ADALIMUMAB 40 MG/0.8 ML SUBCUTANEOUS PEN KIT >> Tanvi Francis APRN.SPECIAL EVENTS DRIVER 04/02/2018 10:17 AM duplicate Problem List As Of Date 04/02/2018 Noted Resolved Anemia [D64.9] INVALID FOR* More... Abdominal pain [R10.9] INVALID FOR*08/09/2013 Biliary dyskinesia [K82.8] INVALID FOR*08/09/2013 Abdominal pain, epigastric [R10.13] INVALID FOR*08/09/2013 Crohn's disease (HCC) [K50.90] INVALID FOR* More... control [Z30.9] INVALID FOR* More... Eczema [L30.9] INVALID FOR* Other instructions from your clinician: 1. Get labwork today. 2. Start augmentin twice daily X 10 days. 3. Return for flu shot after completing antibiotic. Get plenty of rest. Force fluids daily with water and juices. Nasal saline spray may help to keep nose open and moist: 2-3 squirts each side every few hours. This also help to rinse out virus and bacteria causing infection. Cool mist humidifier in room during sleep. May use OTC Tylenol as direct for discomfort. For sore throat, warm salt water gargles, Chlorseptic spray, lozenges or other OTC sore throat remedies may help. Decongestants such as plain Sudafed or with expectorant such as Mucinex D may help with nasal stuffiness or facial and sinus pressure. Generics are fine. These are over the counter but require an adult signature. Oxymetolazine nasal decongestants (Afrin, Dristan, Codey's) may also help (in place of oral decongestants) but should not be used longer than 48-72 hours due to potential rebound congestion. OTC antihistamines such Benadryl (make cause drowsiness) or Zyrtec/ Clariten/ Elizabeth (non-drowsy) may help watery nasal drainage though they are generally not recommended because they dry mucus and make it sticky. The flow of mucus is important to help your body rid the virus. If cough keeps you awake at night, try OTC remedies first, such as Nyquil, Delsym, Codey's 44 or Mucinex DM. If this doesn't help you sleep, call the office for a prescription. Be careful if you are combining cough and cold medications that you aren't doubling the medicines. If you aren't sure: ask the pharmacist for help. Cough or sneeze into your sleeve to prevent spread of infected secretions. Wash your hands frequently. Try not to cough or sneeze on surfaces others might touch. If symptoms fail to improve in 5-7 days, fever > 100.5F, general worsening, or other concerning symptoms, return to [facility] or Torsten Cazares DO. Prescriptions ordered this encounter Disp Refills Start End AMOXICILLIN 875 MG-POTASSIUM CLAVULA* 20 t* 0 04/02/2018 04/12/2018 Route: ORAL Sig: Take 1 tablet by mouth twice daily for 10 days. Medications Discontinued During This Encounter predniSONE (DELTASONE) 20 mg tablet 28 t* 1 12/14/2017 04/02/2018 Route: ORAL Sig: Take 1 tablet by mouth twice daily. Disc: Course of therapy completed Adalimumab (HUMIRA PEN) 40 mg/0.8 mL* 2 Pen 10 01/13/2017 04/02/2018 Route: SUBCUTANEOUS Sig: Inject 0.8 mL subcutaneously every 2 weeks. Disc: Other Encounter Status:Closed by TANVI FRANCIS CNP on 04/02/18 PROGRESS Observed: 04/02/2018 Status: COMPLETED Source: [place] 10:12 AM [facility] RE[facility] HNO ID: [id number] Author: Tanvi Jade) Penny Service: (none) Author Type: Nurse Practitioner Type: Progress Notes Filed: 04/02/2018 11:14 AM Note Text: This is a 23 year old female who presents today with: Patient presents with: std check HISTORY OF PRESENT ILLNESS: Joan Hanson is a 23 year old female. Patient presents with: std check Pt presents today for STD testing. Refers that she got a call from her ex-boyfriend that he was dx with hepatitis. Refers they were together over a year. Broke up two weeks ago. Was sexually active. Pt reports she doesn't have a hx of drug use, but that he had a hx of drug use, which he started back up -- so she broke up with him. Refers that she has chronic stomach problems d/t crohns, but nothing out of the ordinary. Refers that she also thinks that she has a sinus infection. Refers that she has a bad sinus headache. Refers that this started about 10 days, and nothing has changed. On Humira for crohn's. Taking OTC sudafed. Using humidifier. Refers a lot of PND. + frontal pain. No sore throat. No ear pain. + chills. Blowing dark mucus. No cough. Has been nauseated all morning. PAST MEDICAL HISTORY: PAST MEDICAL HISTORY Diagnosis Date - Anemia - Costochondritis - Crohn's disease (HCC) 01/2013 Dr. Cheatham PAST SURGICAL HISTORY Procedure Laterality Date - COLONOSCOPY 01/2013 - EGD 01/11/13 - L'SCOPE IDA W/CHOLANGIOGRAPHY 12/07/12 normal IOC - REMOVAL OF TONSILS,<12 Y/O 2002 Tonsillectomy ALLERGIES Patient has no known allergies. MEDICATIONS Current Outpatient Prescriptions: predniSONE (DELTASONE) 20 mg tablet Take 1 tablet by mouth twice daily. Adalimumab (HUMIRA PEN) 40 mg/0.8 mL pnkt INJECT 1 PEN (40MG) SUBCUTANEOUSLY EVERY 2 WEEKS. Levonorgestrel-Ethinyl Estrad (SRONYX) 0.1mg - 20mcg per tablet Take 1 tablet by mouth once daily. Adalimumab (HUMIRA PEN) 40 mg/0.8 mL pnkt Inject 0.8 mL subcutaneously every 2 weeks. No current facility-administered medications for this visit. FAMILY HISTORY Problem Relation Age of Onset - Hypertension Father - Diabetes Father - Ischemic Heart Disease Maternal Grandfather - Diabetes Maternal Grandfather - Cancer Maternal Grandfather lung - Stroke Mother when - Diabetes Maternal Grandmother - Diabetes Paternal Grandmother - Diabetes Paternal Grandfather Social History Marital status: Single Spouse name: Years of education: Number of children: 0 Social History Main Topics Smoking status: Never Smoker Smokeless tobacco: Never Used Comment: Both parents smoked in childhood home. Alcohol use: No Drug use: No Sexual activity: Yes Partners with: Male control/protection: Condom, Pill EXAM: BP 140/80 (BP Site: Left Arm, BP Position: Sitting, BP Cuff Size: Regular Adult) Pulse 74 Resp 14 Wt 58.5 kg (129 lb) BMI 23.98 kg/m? PHYSICAL EXAM: General Appearance: Well appearing, alert, in no acute distress, well-hydrated, well nourished.. Skin: Skin color, texture, turgor normal, no suspicious rashes or lesions. Head: Normocephalic, no masses, lesions, tenderness or abnormalities. Eyes: Anicteric sclera. Pupils are equally round and reactive to light. Extraocular movements are intact. . Ears: External ears normal, canals clear, Normal TMs bilaterally. Nose/Sinuses: Nares normal, septum midline, mucosa normal, no drainage. + frontal facial tenderness. Oropharynx: Lips, mucosa, and tongue normal, teeth and gums normal, oropharynx normal. Neck: Supple, no adenopathy Lungs: lungs clear to auscultation. No wheezing, rhonchi, rales. Heart: RRR without murmur, gallop, or rubs. No ectopy. Neurologic: Gait normal. ASSESSMENT/PLAN: 1. Exposure to venereal disease - ICD9: V01.6, ICD10: Z20.2 (primary diagnosis) Exposure to hepatitis. Will check labs. Discussed with patient, if negative, she should repeat testing in 3 months. - HEPATIC FUNCTION PNL - COMP METABOLIC PANEL - SYPHILIS IGG WITH CONF - HIV 1,2 COMBO (AG/AB) - GC/CHLAMYDIA AMPLIF, URINE - HEP REMOTE PANEL BL 2. Acute non-recurrent frontal sinusitis - ICD9: 461.1, ICD10: J01.10 - Will begin treatment with Augmentin 875 mg PO BID for 10 days, especially since immunocompromised d/t humira. - The patient should also be given OTC decongestants prn for the first 5-7 days of treatment. - Supportive care with plenty of fluids, rest, and analgesia prn. - AMOXICILLIN 875 MG-POTASSIUM CLAVULANATE 125 MG TABLET 3. Need for vaccination - ICD9: V05.9, ICD10: Z23 She will return after completing the antibiotic for the flu shot. - INFLUENZA VACCINE QUADRIVALENT AGE 3 YRS PLUS + IM Discussed treatment plan and patient voices understanding. Patient's questions answered appropriately. Medications and potential side effects were discussed and patient voices understanding. Return to the office as scheduled or as needed for worsening/no improvement. Tanvi Francis APRN.HANY LEACHN Observed: 02/01/2018 Status: COMPLETED Source: [place] 12:00 AM [facility] REPOSITORY Telephone (GASTTW) JOAN HASNON ([id number]) 1995 F Date Time Provider Department 02/01/18 JAY CHEATHAM During your visit today, we recorded the following information about you: Blake Kang RN, RN 02/01/2018 9:35 AM Signed Received PA request form from [facility] for Humira. Forms filled out, faxed back. Received confirmation that fax was sent. Blake Kang RN February 01, 2018 9:34 AM Blake Kang RN, RN 02/01/2018 12:31 PM Signed Received approval for Humira from [employer]. Approved for 12 months. Scanned into pt chart. Blake Kang RN February 01, 2018 12:31 PM Allergies As of Date: 02/01/2018 (No Known Allergies) Date Reviewed: 01/13/2018 Reviewed by: Yamilex Ribeiro LPN - Fully Assessed Reason for Visit: Insurance Authorization [[id number]] Prescriptions as of 02/01/2018 Sig: PREDNISONE 20 MG TABLET Take 1 tablet by mouth twice * Patient not taking: Reported on 12/31/2017 ADALIMUMAB 40 MG/0.8 ML SUBCU* INJECT 1 PEN (40MG) SUBCUTANE* Patient not taking: Reported on 01/13/2018 LEVONORGESTREL-ETHINYL ESTRAD* Take 1 tablet by mouth once d* ADALIMUMAB 40 MG/0.8 ML SUBCU* Inject 0.8 mL subcutaneously * Problem List As Of Date 02/01/2018 Noted Resolved Anemia [D64.9] INVALID FOR* More... Abdominal pain [R10.9] INVALID FOR*08/09/2013 Biliary dyskinesia [K82.8] INVALID FOR*08/09/2013 Abdominal pain, epigastric [R10.13] INVALID FOR*08/09/2013 Crohn's disease (HCC) [K50.90] INVALID FOR* More... control [Z30.9] INVALID FOR* More... Eczema [L30.9] INVALID FOR* Encounter Status:Closed by BLAKE KANG on 02/01/18 PROGRESS Observed: 01/13/2018 Status: COMPLETED Source: [place] 3:03 PM [facility] REPOSITORY O ID: [id number] Author: Jay Cheatham Service: (none) Author Type: Physician Type: Progress Notes Filed: 01/13/2018 3:06 PM Note Text: CC: Miss. Hanson returns today for follow up of her small bowel Crohn's disease HPI: Joan Hanson is a 22 year old female. The patient was diagnosed with small bowel Crohn's disease and has been doing rather well on Humira injections. In the last year she had 6 flares of small bowel Crohn's-2 of them were treated with a prednisone taper. The patient feels very strongly that these flares were due to the stress of an unpleasant romantic relationship which she has since terminated. She feels back to baseline since ending that relationship. Whether or not any of these abdominal pain issues were truly Crohn's flares is unclear. PAST MEDICAL HISTORY Diagnosis Date - Anemia - Costochondritis - Crohn's disease (HCC) 01/2013 Dr. Cheatham PAST SURGICAL HISTORY Procedure Laterality Date - COLONOSCOPY 01/2013 - EGD 01/11/13 - L'SCOPE IDA W/CHOLANGIOGRAPHY 12/07/12 normal IOC - REMOVAL OF TONSILS,<12 Y/O 2003 Tonsillectomy SOCIAL HX: Social History Substance Use Topics - Smoking status: Never Smoker - Smokeless tobacco: Never Used Comment: Both parents smoked in childhood home. - Alcohol use No FAMILY HISTORY Problem Relation Age of Onset - Hypertension Father - Diabetes Father - Ischemic Heart Disease Maternal Grandfather - Diabetes Maternal Grandfather - Cancer Maternal Grandfather lung - Stroke Mother when - Diabetes Maternal Grandmother - Diabetes Paternal Grandmother - Diabetes Paternal Grandfather ALLERGIES: ALLERGIES No Known Allergies MEDICATIONS: Levonorgestrel-Ethinyl Estrad (SRONYX) 0.1mg - 20mcg per tablet Take 1 tablet by mouth once daily. Adalimumab (HUMIRA PEN) 40 mg/0.8 mL pnkt Inject 0.8 mL subcutaneously every 2 weeks. predniSONE (DELTASONE) 20 mg tablet Take 1 tablet by mouth twice daily. Adalimumab (HUMIRA PEN) 40 mg/0.8 mL pnkt INJECT 1 PEN (40MG) SUBCUTANEOUSLY EVERY 2 WEEKS. ROS: All systems reviewed and negative unless otherwise noted above. PHYSICAL EXAM: VITALS: BP 139/80 Pulse 69 Ht 5' 1.5 (1.56m) Wt 134 lb 12.8 oz (61.1kg) LMP 12/17/2017 BMI 25.06 kg/(m2). General Appearance: Well appearing, alert, in no acute distress, well-hydrated, well nourished.. Skin: Skin color, texture, turgor normal, no suspicious rashes or lesions. Lungs: Lungs clear to auscultation. No wheezing, rhonchi, rales. Heart: RRR without murmur, gallop, or rubs. No ectopy. Abdomen: Normal abdominal exam, Abdomen soft, non-tender. Bowel sounds normal. No masses, organomegaly. IMPRESSION: Small bowel Crohn's disease maintained on Humira injections. The recently described flares may not actually have been Crohn's flares at all but rather IBS-like symptoms related to stress PLAN: As the patient is currently asymptomatic, we'll just continue her Humira for now. Should she develop a subsequent episode of abdominal pain, would get a CT enterography to carefully examine the small bowel This note was partially generated using [employer] voice recognition system, and there may be some incorrect words, spellings, and punctuation that were not noted in checking the note before saving. Jay Cheatham MD CNOV Observed: 01/13/2018 Status: COMPLETED Source: [place] 2:30 PM [facility] REPOSITORY Office Visit (GASTTW) JOAN HANSON ([id number]) 1995 F Date Time Provider Department 01/13/18 2:30 PM JAY CHEATHAM GASTAdiliaW During your visit today, we recorded the following information about you: Pulse Blood pressure Weight Height 69/minute 139/80 61.1 kg 1.562 m Jay Cheatham MD 01/13/2018 3:06 PM Signed CC: Miss. Hanson returns today for follow up of her small bowel Crohn's disease HPI: Joan Hanson is a 22 year old female. The patient was diagnosed with small bowel Crohn's disease and has been doing rather well on Humira injections. In the last year she had 6 flares of small bowel Crohn's-2 of them were treated with a prednisone taper. The patient feels very strongly that these flares were due to the stress of an unpleasant romantic relationship which she has since terminated. She feels back to baseline since ending that relationship. Whether or not any of these abdominal pain issues were truly Crohn's flares is unclear. PAST MEDICAL HISTORY Diagnosis Date - Anemia - Costochondritis - Crohn's disease (HCC) 01/2013 Dr. Cheatham PAST SURGICAL HISTORY Procedure Laterality Date - COLONOSCOPY 01/2013 - EGD 01/11/13 - L'SCOPE IDA W/CHOLANGIOGRAPHY 12/07/12 normal IOC - REMOVAL OF TONSILS,<12 Y/O 2003 Tonsillectomy SOCIAL HX: Social History Substance Use Topics - Smoking status: Never Smoker - Smokeless tobacco: Never Used Comment: Both parents smoked in childhood home. - Alcohol use No FAMILY HISTORY Problem Relation Age of Onset - Hypertension Father - Diabetes Father - Ischemic Heart Disease Maternal Grandfather - Diabetes Maternal Grandfather - Cancer Maternal Grandfather lung - Stroke Mother when - Diabetes Maternal Grandmother - Diabetes Paternal Grandmother - Diabetes Paternal Grandfather ALLERGIES: ALLERGIES No Known Allergies MEDICATIONS: Levonorgestrel-Ethinyl Estrad (SRONYX) 0.1mg - 20mcg per tablet Take 1 tablet by mouth once daily. Adalimumab (HUMIRA PEN) 40 mg/0.8 mL pnkt Inject 0.8 mL subcutaneously every 2 weeks. predniSONE (DELTASONE) 20 mg tablet Take 1 tablet by mouth twice daily. Adalimumab (HUMIRA PEN) 40 mg/0.8 mL pnkt INJECT 1 PEN (40MG) SUBCUTANEOUSLY EVERY 2 WEEKS. ROS: All systems reviewed and negative unless otherwise noted above. PHYSICAL EXAM: VITALS: BP 139/80 Pulse 69 Ht 5' 1.5 (1.56m) Wt 134 lb 12.8 oz (61.1kg) LMP 12/17/2017 BMI 25.06 kg/(m2). General Appearance: Well appearing, alert, in no acute distress, well-hydrated, well nourished.. Skin: Skin color, texture, turgor normal, no suspicious rashes or lesions. Lungs: Lungs clear to auscultation. No wheezing, rhonchi, rales. Heart: RRR without murmur, gallop, or rubs. No ectopy. Abdomen: Normal abdominal exam, Abdomen soft, non-tender. Bowel sounds normal. No masses, organomegaly. IMPRESSION: Small bowel Crohn's disease maintained on Humira injections. The recently described flares may not actually have been Crohn's flares at all but rather IBS-like symptoms related to stress PLAN: As the patient is currently asymptomatic, we'll just continue her Humira for now. Should she develop a subsequent episode of abdominal pain, would get a CT enterography to carefully examine the small bowel This note was partially generated using [employer] voice recognition system, and there may be some incorrect words, spellings, and punctuation that were not noted in checking the note before saving. Jay Cheatham MD Referring Provider: SELF [[id number]] Allergies As of Date: 01/13/2018 (No Known Allergies) Date Reviewed: 01/13/2018 Reviewed by: Yamilex Ribeiro LPN - Fully Assessed Reason for Visit: Crohns [292] Cmt: follow up Primary Visit Diagnosis:Crohn's disease of small intestine without complication (HCC) [K50.00] Prescriptions as of 01/13/2018 Sig: LEVONORGESTREL-ETHINYL ESTRAD* Take 1 tablet by mouth once d* ADALIMUMAB 40 MG/0.8 ML SUBCU* Inject 0.8 mL subcutaneously * PREDNISONE 20 MG TABLET Take 1 tablet by mouth twice * Patient not taking: Reported on 12/31/2017 ADALIMUMAB 40 MG/0.8 ML SUBCU* INJECT 1 PEN (40MG) SUBCUTANE* Patient not taking: Reported on 01/13/2018 Problem List As Of Date 01/13/2018 Noted Resolved Anemia [D64.9] INVALID FOR* More... Abdominal pain [R10.9] INVALID FOR*08/09/2013 Biliary dyskinesia [K82.8] INVALID FOR*08/09/2013 Abdominal pain, epigastric [R10.13] INVALID FOR*08/09/2013 Crohn's disease (HCC) [K50.90] INVALID FOR* More... control [Z30.9] INVALID FOR* More... Eczema [L30.9] INVALID FOR* Encounter Status:Closed by JAY CHEATAHM MD on 01/13/18 PROGRESS Observed: 12/31/2017 Status: COMPLETED Source: [place] 1:35 PM [facility] REPOSIT[facility] O ID: [id number] Author: Terence Oviedo Service: (none) Author Type: Nurse Practitioner Type: Progress Notes Filed: 12/31/2017 3:29 PM Note Text: Subjective HPI HPI Joan Hanson is a 22 year old female who presents today for CC of left knee pain. This started 1 day ago. Has tried nothing for relief. Symptoms are worsened by rom of knee. Risk factors none, no injury known to cause, no hx of injury/surgery to left knee. Denies possibility of being . Needs work note. .Patient presents with: left knee pain with swelling: x 1 day PAST MEDICAL HISTORY Diagnosis Date - Anemia - Costochondritis - Crohn's disease (HCC) 01/2013 Dr. Cheatham PAST SURGICAL HISTORY Procedure Laterality Date - COLONOSCOPY 01/2013 - EGD 01/11/13 - L'SCOPE IDA W/CHOLANGIOGRAPHY 12/07/12 normal IOC - REMOVAL OF TONSILS,<12 Y/O 2003 Tonsillectomy ALLERGIES Patient has no known allergies. MEDICATIONS Adalimumab (HUMIRA PEN) 40 mg/0.8 mL pnkt INJECT 1 PEN (40MG) SUBCUTANEOUSLY EVERY 2 WEEKS. Levonorgestrel-Ethinyl Estrad (SRONYX) 0.1mg - 20mcg per tablet Take 1 tablet by mouth once daily. Adalimumab (HUMIRA PEN) 40 mg/0.8 mL pnkt Inject 0.8 mL subcutaneously every 2 weeks. predniSONE (DELTASONE) 20 mg tablet Take 1 tablet by mouth twice daily. FAMILY HISTORY Problem Relation Age of Onset - Hypertension Father - Diabetes Father - Ischemic Heart Disease Maternal Grandfather - Diabetes Maternal Grandfather - Cancer Maternal Grandfather lung - Stroke Mother when - Diabetes Maternal Grandmother - Diabetes Paternal Grandmother - Diabetes Paternal Grandfather Social History Substance Use Topics - Smoking status: Never Smoker - Smokeless tobacco: Never Used Comment: Both parents smoked in childhood home. - Alcohol use No Review of Systems Constitutional: Negative for chills and fever. Musculoskeletal: Positive for joint pain. Negative for myalgias. Skin: Negative for itching. Objective Blood pressure 132/88, pulse 83, temperature 37.3 ?C (99.1 ?F), temperature source Left Tympanic, resp. rate 16, weight 59.1 kg (130 lb 3.2 oz), last menstrual period 12/17/2017, SpO2 99 %. Physical Exam Constitutional: She is oriented to person, place, and time and well-developed, well-nourished, and in no distress. Non-toxic appearance. She does not have a sickly appearance. No distress. HENT: Head: Normocephalic and atraumatic. Cardiovascular: Pulses: Dorsalis pedis pulses are 2+ on the left side. Posterior tibial pulses are 2+ on the left side. Pulmonary/Chest: Effort normal. No accessory muscle usage. No respiratory distress. Musculoskeletal: Left knee: She exhibits normal range of motion, no swelling, no effusion, no ecchymosis, no deformity, no laceration, no erythema, normal alignment, no LCL laxity, no bony tenderness, normal meniscus and no MCL laxity. Tenderness found. Medial joint line and lateral joint line tenderness noted. No patellar tendon tenderness noted. Left knee compared to right Neurological: She is alert and oriented to person, place, and time. Skin: She is not diaphoretic. ASSESSMENT/PLAN: 1. Acute pain of left knee - ICD9: 719.46, ICD10: M25.562 -given stretches/exercises -Rest, Ice, Compression, Elevation discussed -follow up with primary care if symptoms persist/worsen in 1-2 -discussed xray, declined -nancy wrap applied, crutches given - METHYLPREDNISOLONE 4 MG TABLETS IN A DOSE PACK Prescription instructions reviewed with patient as applicable. Patient advised if symptoms do not improve or if symptoms worsen sooner, to contact the office for further evaluation by their primary care physician. Potential red flag symptoms discussed with the patient. Reviewed appropriate action plan to take if red flag symptoms occur. Patient agreeable to treatment plan. TAVO GaOV Observed: 12/31/2017 Status: COMPLETED Source: [place] 1:15 PM [facility] REPOSITORY Office Visit (WSTR) JOAN HANSON ([id number]) 1995 F Date Time Provider Department 12/31/17 1:15 PM TERENCE OVIEDO (HANY) WSTR During your visit today, we recorded the following information about you: Temperature Pulse Respiration Blood pressure 99.1 degrees 83/minute 16/minute 132/88 Weight Last Period 59.1 kg 12/17/17 Terence Oviedo APRN.CNP 12/31/2017 3:29 PM Signed Subjective HPI HPI Joan Urbinatheo is a 22 year old female who presents today for CC of left knee pain. This started 1 day ago. Has tried nothing for relief. Symptoms are worsened by rom of knee. Risk factors none, no injury known to cause, no hx of injury/surgery to left knee. Denies possibility of being . Needs work note. .Patient presents with: left knee pain with swelling: x 1 day PAST MEDICAL HISTORY Diagnosis Date - Anemia - Costochondritis - Crohn's disease (HCC) 01/2013 Dr. Cheatham PAST SURGICAL HISTORY Procedure Laterality Date - COLONOSCOPY 01/2013 - EGD 01/11/13 - L'SCOPE IDA W/CHOLANGIOGRAPHY 12/07/12 normal IOC - REMOVAL OF TONSILS,<10 Y/O 2002 Tonsillectomy ALLERGIES Patient has no known allergies. MEDICATIONS Adalimumab (HUMIRA PEN) 40 mg/0.8 mL pnkt INJECT 1 PEN (40MG) SUBCUTANEOUSLY EVERY 2 WEEKS. Levonorgestrel-Ethinyl Estrad (SRONYX) 0.1mg - 20mcg per tablet Take 1 tablet by mouth once daily. Adalimumab (HUMIRA PEN) 40 mg/0.8 mL pnkt Inject 0.8 mL subcutaneously every 2 weeks. predniSONE (DELTASONE) 20 mg tablet Take 1 tablet by mouth twice daily. FAMILY HISTORY Problem Relation Age of Onset - Hypertension Father - Diabetes Father - Ischemic Heart Disease Maternal Grandfather - Diabetes Maternal Grandfather - Cancer Maternal Grandfather lung - Stroke Mother when - Diabetes Maternal Grandmother - Diabetes Paternal Grandmother - Diabetes Paternal Grandfather Social History Substance Use Topics - Smoking status: Never Smoker - Smokeless tobacco: Never Used Comment: Both parents smoked in childhood home. - Alcohol use No Review of Systems Constitutional: Negative for chills and fever. Musculoskeletal: Positive for joint pain. Negative for myalgias. Skin: Negative for itching. Objective Blood pressure 132/88, pulse 83, temperature 37.3 ?C (99.1 ?F), temperature source Left Tympanic, resp. rate 16, weight 59.1 kg (130 lb 3.2 oz), last menstrual period 12/17/2017, SpO2 99 %. Physical Exam Constitutional: She is oriented to person, place, and time and well-developed, well-nourished, and in no distress. Non-toxic appearance. She does not have a sickly appearance. No distress. HENT: Head: Normocephalic and atraumatic. Cardiovascular: Pulses: Dorsalis pedis pulses are 2+ on the left side. Posterior tibial pulses are 2+ on the left side. Pulmonary/Chest: Effort normal. No accessory muscle usage. No respiratory distress. Musculoskeletal: Left knee: She exhibits normal range of motion, no swelling, no effusion, no ecchymosis, no deformity, no laceration, no erythema, normal alignment, no LCL laxity, no bony tenderness, normal meniscus and no MCL laxity. Tenderness found. Medial joint line and lateral joint line tenderness noted. No patellar tendon tenderness noted. Left knee compared to right Neurological: She is alert and oriented to person, place, and time. Skin: She is not diaphoretic. ASSESSMENT/PLAN: 1. Acute pain of left knee - ICD9: 719.46, ICD10: M25.562 -given stretches/exercises -Rest, Ice, Compression, Elevation discussed -follow up with primary care if symptoms persist/worsen in 1-2 -discussed xray, declined -nancy wrap applied, crutches given - METHYLPREDNISOLONE 4 MG TABLETS IN A DOSE PACK Prescription instructions reviewed with patient as applicable. Patient advised if symptoms do not improve or if symptoms worsen sooner, to contact the office for further evaluation by their primary care physician. Potential red flag symptoms discussed with the patient. Reviewed appropriate action plan to take if red flag symptoms occur. Patient agreeable to treatment plan. Terence Oviedo APRN.HANY Oviedo APRN.CNP 12/31/2017 1:52 PM Signed ASSESSMENT/PLAN: 1. Acute pain of left knee - ICD9: 719.46, ICD10: M25.562 -given stretches/exercises -Rest, Ice, Compression, Elevation discussed -discussed use of ibuprofen -follow up with primary care if symptoms persist/worsen in 1-2 - METHYLPREDNISOLONE 4 MG TABLETS IN A DOSE PACK Referring Provider: SELF [200] Allergies As of Date: 12/31/2017 (No Known Allergies) Date Reviewed: 12/31/2017 Reviewed by: Terence (Ruddy Oviedo - Fully Assessed Reason for Visit: left knee pain with swelling [Other] Cmt: x 1 day Primary Visit Diagnosis:Acute pain of left knee [M25.562] Order(s):methylPREDNISolone (MEDROL, MONCHO,) 4 mg Dose-PackFollow dosing instructions, take with food.Disp: 1 PackageRfl: 0 Prescriptions as of 12/31/2017 Sig: ADALIMUMAB 40 MG/0.8 ML SUBCU* INJECT 1 PEN (40MG) SUBCUTANE* LEVONORGESTREL-ETHINYL ESTRAD* Take 1 tablet by mouth once d* ADALIMUMAB 40 MG/0.8 ML SUBCU* Inject 0.8 mL subcutaneously * METHYLPREDNISOLONE 4 MG TABLE* Follow dosing instructions, t* PREDNISONE 20 MG TABLET Take 1 tablet by mouth twice * Patient not taking: Reported on 12/31/2017 Problem List As Of Date 12/31/2017 Noted Resolved Anemia [D64.9] INVALID FOR* More... Abdominal pain [R10.9] INVALID FOR*08/09/2013 Biliary dyskinesia [K82.8] INVALID FOR*08/09/2013 Abdominal pain, epigastric [R10.13] INVALID FOR*08/09/2013 Crohn's disease (HCC) [K50.90] INVALID FOR* More... control [Z30.9] INVALID FOR* More... Eczema [L30.9] INVALID FOR* Other instructions from your clinician: ASSESSMENT/PLAN: 1. Acute pain of left knee - ICD9: 719.46, ICD10: M25.562 -given stretches/exercises -Rest, Ice, Compression, Elevation discussed -discussed use of ibuprofen -follow up with primary care if symptoms persist/worsen in 1-2 - METHYLPREDNISOLONE 4 MG TABLETS IN A DOSE PACK Prescriptions ordered this encounter Disp Refills Start End METHYLPREDNISOLONE 4 MG TABLETS IN A* 1 Pa* 0 12/31/2017 01/06/2018 Sig: Follow dosing instructions, take with food. Medications Discontinued During This Encounter triamcinolone acetonide (KENALOG) 0.* 30 g 0 02/29/2016 12/31/2017 Route: TOPICAL Sig: Apply 1 application to affected area twice daily as needed. To eczema rash, only up to 7 days at a time, Apply sparingly to area. Disc: Discontinued by Patient sertraline (ZOLOFT) 25 mg tablet 30 t* 5 03/02/2017 12/31/2017 Route: ORAL Sig: Take 1 tablet by mouth once daily. Patient not taking: Reported on 12/31/2017 Disc: Discontinued by Patient Letter Text [facility] Terence Oviedo, [employer]IVER [address], [place] [address] 12/31/2017 Joan Hanson [facility]# [id number] [address] [facility] [address] TO WHOM IT MAY CONCERN: This is to confirm that Joan Hanson had an appointment and was seen at the [facility] in the Department of Urgent Care by Terence Oviedo CNP on 12/31/2017. Sincerely yours, Terence Oviedo CNP Encounter Status:Closed by TERENCE OVIEDO CNP on 12/31/17 EMERGENCY DEPARTMENT Observed: 12/14/2017 Status: F Source: [place] SUMMARY 3:20 PM [facility] REPOSITORY [facility] Medical Records Department [address] [place] [address] Emergency Department Summary 12/14/17 0959 MR#: [id number] Acct: [id number] Name: JOAN HANSON Rep #: [id number] : 1995 22 From: Ramirez Hackett MD PCP: Torsten Art DO Status: DEP ER - ER Visit Summary Date of Service: 12/14/17 Chief Complaint: Abdominal pain, nausea, vomiting, diarrhea History of Present Illness: The patient is a 22 F with history of Crohn's disease presents to the emergency department with worsening abdominal pain. The patient does follow with Dr. Cheatham at the [facility]. She is on Humira injections. Her last injection was 10 days ago. She states over the past 3 days, she has had worsening pain. States is mostly diffusely abdomen. She states that a few bouts of emesis without blood. She has also had some loose watery diarrhea. She denies any blood in the diarrhea. She states she has had some increasing cramping and pain. She denies any fevers or chills. She has had no history of bowel obstruction. The patient did have prior cholecystectomy, but no other abdominal surgery. She states her last prednisone use was about 6 months ago. Physical Examination: Vital signs reviewed General: Well-nourished, well-developed Head: Normocephalic, atraumatic Eyes: Pupils equal and reactive, extraocular muscles intact Neck, supple, no lymphadenopathy Heart: Regular rate and rhythm Respiratory: No distress, clear bilaterally Abdomen: Soft, diffusely tender without rebound or guarding, nondistended, no peritoneal signs Back: Nontender Extremities: Nontender, no edema, no cords Skin: Normal color no rash Neuro: Alert and oriented, no focal or lateralizing deficits Test Results: [] Emergency Department Course and Treatment: IV was established. Patient was given fluids, analgesics, and antiemetics. She did have improvement of her pain. Her labs are unremarkable. With her history of Crohn's, I did want to rule out acute intra-abdominal process. Patient underwent CT with both oral and IV contrast. This does demonstrate progression of her Crohn's. There is no obstruction. There is no perforation. On reevaluation she is resting comfortably. Patient is requesting outpatient management and I feel this is reasonable. She is given a dose of IV Solu-Medrol here. She will be kept on Cipro, analgesics, and prednisone. I did university counselor her on the importance of following up with her GI doctor. She will be discharged home. Treatment Plan: [] Disposition: Discharge Impression: Acute Crohn's flare This note was generated with Emcore dictation software. It may contain incorrect words, spelling, and punctuation that were not noted in review of the chart prior to signing ED Disposition - Plan for ED Patient: Chief Complaint: Abd Pain Instructions: ED Inflam Bowel Disease Crohn Prescriptions: Oxycodone HCl/Acetaminophen [Percocet 5/325] 1 tab PO Q6H PRN PRN 3 Days #8 tab PRN Reason: Pain Prednisone [Deltasone] 40 mg PO DAILY #10 tab Ciprofloxacin [Cipro] 500 mg PO BID #14 tab Referrals: Torsten Cazares DO [Primary Care Provider] - What to do if you have Problems For any increased pain, shortness of breath, bleeding, nausea or vomiting, chest pain, or any unexpected problems, contact your Primary Care Provider. Call [facility] ([phone]) or report to the closest Emergency Room. Call 911 if necessary. 12/14/17 1520 <Electronically signed by Ramirez Hackett MD> Date Ramirez Hackett MD Cosigner Signature (If Indicated): Date CC: Torsten Art, DO ,URINE Collected: 12/14/2017 Status: F Source: [place] 11:00 AM [facility] REPOSITORY Order Comment: Order Date: 12/14/17 Has pt arrived? Y TYPE CODE TESTS RESULT OUT OF REFERENCE UNITS RANGE LAB L400.8000 Negative Normal HCGUQUAL Negative Result Comment: Very dilute urine specimens, as indicated by a low specific gravity, may not contain sales representative aircraft levels of hCG. If is still suspected, a first morning urine specimen should be collected 48 hours later and tested. Performed By: #### L400.7600 #### [facility] [address] [place], [place], [address] URINALYSIS, COMPLETE Collected: 12/14/2017 Status: F Source: [place] 11:00 AM [facility] REPOSITORY Order Comment: Order Date: 12/14/17 Has pt arrived? Y How was Urine Obtained? CLEAN CATCH TYPE CODE TESTS RESULT OUT OF RANGE REFERENCE UNITS LAB L400.3000 Yellow COLOR Normal Straw LAB L400.3050 Clear Normal CLARITY Clear LAB L400.3200 Normal mg/dl Normal GLUCOSE, UR Normal LAB L400.3300 Negative mg/dL Normal BILIRUBIN URINE Negative LAB L400.3400 Negative mg/dl High 5 KETONE UR LAB L400.3465 1.002-1.030 Normal SP.GR. DIPSTX 1.010 LAB L400.3550 5.0 - 8.0 pH UR Normal 6.0 LAB L400.3600 Negative mg/dl PROT Normal DIPSTX Negative LAB L400.3700 Normal mg/dl Normal UROBILI Normal LAB L400.3750 Negative Normal NITRITE UR Negative LAB L400.3780 Negative /ul High 10 OCCULT BLOOD-UR LAB L400.3800 Negative /ul High LEUK 25 ESTERASE LAB L400.4050 0-5 /hpf WBC Normal 0-5 SEEN LAB L400.4100 0-5 /hpf Normal RBC-UA 0-5 SEEN LAB L400.4150 5-10 /hpf SQUAM Normal EPI 0-5 SEEN LAB L400.4300 None Seen /hpf Normal BACTERIA RARE LAB L400.4350 <or=2+ /hpf Normal MUCUS, URINE RARE Performed By: #### L400.0001 #### [facility] [address] [place], [address] CBC W/DIFF, AUTOMATED Collected: 12/14/2017 Status: F Source: [place] 10:15 AM [facility] REPOSITORY TYPE CODE TESTS RESULT OUT OF RANGE REFERENCE UNITS LAB L100.1000 4.4-11.0 K/mm3 Normal WBC 10.2 LAB L100.1200 4.2-5.4 M/mm3 Normal RBC 4.42 LAB L100.1300 12.0-15.0 g/dl Normal HGB 13.3 LAB L100.1400 37-47 % Normal HCT 40.1 LAB L100.1500 81-99 fL Normal MCV 90.7 LAB L100.1600 27.0-32.0 pg Normal MCH 30.1 LAB L100.1700 32-36 g/gl Normal MCHC 33.2 LAB L100.1810 11.6-14.6 % Normal RDW CV 12.6 LAB L100.1820 35.1-43.9 fl Normal RDW SD 42.2 LAB L100.1900 150-450 K/mm3 Normal PLT 246 LAB L100.2000 6.2-12.0 fl Normal MPV 9.1 LAB L100.2100 47-70 % Normal NEUT% 69.3 LAB L100.2200 19-41 % Normal LY% 24.7 LAB L100.2300 0-10 % Normal MONO% 4.8 LAB L100.2400 0-5 % Normal EO% 0.7 LAB L100.2500 0-1 % Normal BASO% 0.4 LAB L100.2550 0.0-0.9 % Normal IM GRAN % 0.100 Result Comment: IG% - Immature Granulocytes (promyelocytes, myelocytes and metamyelocytes) > 1% indicates that a LEFT SHIFT is Present. LAB L100.2620 2.0-7.7 X10 3/uL Normal Absolute Neut 7.1 LAB L100.2720 0.83-4.51 X10 3/ul Normal Absolute Lymph 2.52 Performed By: #### L100.0100 #### [facility] [address] [place], [address] COMPREHENSIVE METABOLIC Collected: 12/14/2017 Status: F Source: [place] 10:15 AM [facility] REPOSITORY TYPE CODE TESTS RESULT OUT OF RANGE REFERENCE UNITS LAB L501.0100 74-106 mg/dL Normal GLU 78 Result Comment: Please note revised GLUCOSE reference range effective 2017. LAB L501.1000 7-18 mg/dL Normal BUN 10 LAB L501.1100 0.55-1.02 mg/dL Normal CREAT,SERUM 0.90 Result Comment: The validity of the calculated GFR AND GFRAA in patients over 70 years has not been determined. Clinical correlation is essential. LAB L501.1110 >60 mL/min Normal EST GFR 81 Result Comment: Non- GFR Calc LAB L501.1115 >60 mL/min Normal EST GFR - AA 98 Result Comment: GFR Calc LAB L501.1255 ml/min Normal Estimated CRCL 72.73 LAB L501.1300 10-20 RATIO Normal BUN/CRE 11.1 LAB L501.1500 6.4-8. g/dL Normal 2 T PROT 7.9 LAB L501.1800 3.2-5. g/dL Normal 0 ALB 3.7 LAB L501.1950 2.2-4. g/dL Normal 2 GLOB 4.2 LAB L501.2000 0.9-2. RATIO Normal 4 A/G 0.9 LAB L501.2200 8.5-10 mg/dL Normal .1 CA 8.8 LAB L501.4100 15-37 U/L Low AST 14 LAB L501.4305 45-117 U/L Normal ALK P 46 LAB L501.4405 13-56 U/L Normal ALT 19 LAB L501.4600 0.20-1 mg/dL Normal .00 T BILI 0.70 LAB L501.5300 136-14 mmol/L Normal 5 NA 137 LAB L501.5600 3.5-5. mmol/L Normal 1 K 4.1 LAB L501.5900 98-107 mmol/L Normal CL 105 LAB L501.6100 21.0-3 mmol/L Normal 2.0 CO2 26.0 LAB L501.6200 5-15 Normal GAP 6 Performed By: #### L500.4050 #### [facility] [address] [place], [place], [id number] ABDOMEN/PELVIS WITH Observed: 12/14/2017 Status: F Source: [place] CONTRAST 9:53 AM [facility] REPOSITORY [facility] Imaging Services [address] [place] [address] Abdomen/Pelvis WITH Contrast MR#: [id number] Acct: [id number] Name: JOAN HANSON Rep #: [id number] : 1995 F 22 From: Uriel Reece MD PCP: Torsten Art DO Status: REG ER Study: Abdomen/Pelvis WITH Contrast Date of Exam: 12/14/17 Exam# [id number] Ordering Dr: Ramirez Hackett MD STUDY: CT ABDOMEN AND PELVIS WITH CONTRAST REASON FOR EXAM: Female, 22 years old. Vomiting and diarrhea. History of Crohn's disease. RADIATION DOSAGE (If Supplied By Facility): CTDIvol = ( 11.8 ) mGy, DLP = ( 677.42 ) mGycm TECHNIQUE: Transaxial images were obtained from the dome of the diaphragm to the symphysis pubis with oral contrast. 100 ml of Isovue 300 contrast was administered. Sagittal and coronal images were reconstructed. Individualized dose optimization techniques were used for this CT. COMPARISON: Comparison is made with prior examination dated July 04, 2016. FINDINGS: The visualized lung bases are unremarkable. The visualized portions of the heart are within normal limits. Normal liver. The patient is status post cholecystectomy. Normal spleen. Normal pancreas. Normal bilateral adrenal glands. Normal right kidney. Normal left kidney. Normal visualized stomach. There is evidence of a marked degree of circumferential wall thickening of the the ileum and terminal ileum with evidence of fluid surrounding the distal small bowel loops as well as fluid in the mesentery and in the pelvis. This is in keeping with recurrent Crohn's disease. This has progressed as compared to prior study. A large amount of fecal material is seen throughout the colon. Scattered sigmoid diverticulosis. There is non-visualization of the appendix. Normal abdominal aorta. Normal inferior vena cava. Normal retroperitoneum. Normal urinary bladder. Normal abdominal wall. Normal osseous structures. CT/Abdomen/Pelvis WITH Contrast IMPRESSION: Diffuse circumferential wall thickening of the ileum and terminal ileum with the thickening of the bowel wall. Fluid is seen in the surrounding mesentery as well as within the pelvis. Recurrent Crohn's disease is suspected. Large amount of fecal material is seen in the colon. Electronically Signed: Uriel Reece MD at 12:30 EDT Tel [phone], Service support , CC: Torsten Art DO; Ramirez Hackett MD Production Machine Operator: Signed PROGRESS Observed: 05/17/2017 Status: COMPLETED Source: [place] 1:38 PM [facility] REPOSIT[facility] HNO ID: [id number] Author: Terence (Hany) Service: (none) Author Type: Nurse Practitioner Type: Progress Notes Filed: 05/17/2017 1:45 PM Note Text: Subjective HPI HPI Joan Hanson is a 22 year old female who presents today for CC of sinus pressure/cough. This started over 1 week ago. Has tried mucinex without relief. Symptoms are worsened by nothing. Risk factors sick exposures at work. Is on humira Review of Systems Constitutional: Negative for chills, fever and weight loss. HENT: Positive for congestion, sinus pain and sore throat. Negative for ear pain and nosebleeds. Respiratory: Positive for cough. Negative for shortness of breath and wheezing. Musculoskeletal: Negative for neck pain. Skin: Negative for itching and rash. PAST MEDICAL HISTORY Diagnosis Date - Anemia - Costochondritis - Crohn's disease (HCC) 01/2013 Dr. Cheatham PAST SURGICAL HISTORY Procedure Laterality Date - COLONOSCOPY 01/2013 - EGD 01/11/13 - L'SCOPE IDA W/CHOLANGIOGRAPHY 12/07/12 normal IOC - REMOVAL OF TONSILS,<10 Y/O 2003 Tonsillectomy ALLERGIES Review of patient's allergies indicates no known allergies. MEDICATIONS sertraline (ZOLOFT) 25 mg tablet Take 1 tablet by mouth once daily. Adalimumab (HUMIRA PEN) 40 mg/0.8 mL pnkt Inject 0.8 mL subcutaneously every 2 weeks. HUMIRA PEN 40 mg/0.8 mL pnkt INJECT 1 PEN (40MG) SUBCUTANEOUSLY EVERY 2 WEEKS. Levonorgestrel-Ethinyl Estrad (SRONYX) 0.1mg - 20mcg per tablet Take 1 tablet by mouth once daily. triamcinolone acetonide (KENALOG) 0.1 % cream Apply 1 application to affected area twice daily as needed. To eczema rash, only up to 7 days at a time, Apply sparingly to area. FAMILY HISTORY Problem Relation Age of Onset - Hypertension Father - Diabetes Father - Ischemic Heart Disease Maternal Grandfather - Diabetes Maternal Grandfather - Cancer Maternal Grandfather lung - Stroke Mother when - Diabetes Maternal Grandmother - Diabetes Paternal Grandmother - Diabetes Paternal Grandfather Social History Substance Use Topics - Smoking status: Never Smoker - Smokeless tobacco: Never Used Comment: Both parents smoked in childhood home. - Alcohol use No Blood pressure 120/72, pulse 70, temperature 36.8 ?C (98.3 ?F), temperature source Tympanic, resp. rate 16, weight 57.6 kg (127 lb), last menstrual period 05/12/2017, SpO2 99 %. Objective Physical Exam Constitutional: She is oriented to person, place, and time and well-developed, well-nourished, and in no distress. Non-toxic appearance. She does not have a sickly appearance. No distress. HENT: Head: Normocephalic and atraumatic. Right Ear: Hearing, tympanic membrane, external ear and ear canal normal. Left Ear: Hearing, tympanic membrane, external ear and ear canal normal. Nose: Right sinus exhibits maxillary sinus tenderness and frontal sinus tenderness. Left sinus exhibits maxillary sinus tenderness and frontal sinus tenderness. Mouth/Throat: Uvula is midline, oropharynx is clear and moist and mucous membranes are normal. Eyes: Conjunctivae and lids are normal. Pupils are equal, round, and reactive to light. Right eye exhibits no discharge. Left eye exhibits no discharge. No scleral icterus. Neck: Trachea normal and normal range of motion. Neck supple. Cardiovascular: Normal rate, regular rhythm and normal heart sounds. Pulmonary/Chest: Effort normal and breath sounds normal. Lymphadenopathy: She has no cervical adenopathy. Neurological: She is alert and oriented to person, place, and time. Skin: No rash noted. She is not diaphoretic. ASSESSMENT/PLAN: 1. Sinobronchitis - ICD9: 473.9, 490, ICD10: J32.9, J40 - Will begin treatment with Doxycline - Supportive care with plenty of fluids, rest, and analgesia prn. - Follow up in 3-5 days if symptoms persist or worsen. - DOXYCYCLINE MONOHYDRATE 100 MG TABLET Prescription instructions reviewed with patient as applicable. Patient advised if symptoms do not improve or if symptoms worsen sooner, to contact the office for further evaluation by their primary care physician. Potential red flag symptoms discussed with the patient. Reviewed appropriate action plan to take if red flag symptoms occur. Patient agreeable to treatment plan. Terence Oviedo CNP ALLERGIES ALLERGIES DATE TYPE / CODE NAME / CODE REACTION SEVERITY SOURCE 04/21/2018 Drug No Known Unknown [facility] Allergy/416 Allergies/Q99480 Hospital 499726(SNOM 0388(RXNORM) Repository ED CT) Drug NO KNOWN [facility] Class/85492 ALLERGIES Main [place] 1003(SNOMED Repository CT) ENCOUNTERS ENCOUNTERS ADMIT/DISCHARGE ACCOUNT ADMITTING ENCOUNTER LOCATION SOURCE NUMBER CLASS 04/21/2018/04/21/19 [id number] Emergency [address] ing:ED Repository 04/02/2018/04/02/19 [id number] Ambulatory [address] Main [place] Repository 04/02/2018/04/05/19 [id number] Ambulatory [address] Main [place] Repository 01/13/2018/01/15/20 [id number] Ambulatory [address] Repository 12/31/2017/01/02/20 [id number] Ambulatory [address] Repository 12/14/2017/12/15/19 [id number] Emergency [address] ing:ED Repository 05/17/2017/05/17/19 [id number] Ambulatory [address] Repository PAYERS PAYERS ENCOUNTER GUARANTOR PAYER SUBSCRIBER SOURCE 04/21/2018 CATLINE M Primary ONOFRELINE M Lor HANSON[address] ALE Insurance:NALLELY CHUA: [address] [id number] [address]Hup: PLANPolicy Number: Repository [id number] (HP) Date:[id number] [place] [address]ZX: 04/21/2018 Secondary NOT GIVENUNK [place] Insurance:SELF PAY [facility] Number: Effective Repository Date:2018-04-21 12/14/2017 JOAN M Primary JOAN HANSON6968 TR Insurance:NALLELY LYNNB: [address] [id number] [address]Exv: PLANPolicy Number: Repository [id number] (HP) Date:[id number] [address]II: 12/14/2017 Secondary NOT GIVENUNK [place] Insurance:SELF PAY [facility] Number: Effective Repository Date:2017-12-14
== END 2018-04-21 17:07 | disposition home or self-care (01) ==
PROVIDERS: Emergency Provider Emergency Medicine; Family Provider Student in an Organized Health Care Education/Training Program; PCP Student in an Organized Health Care Education/Training Program
DX: M94.0 Chondrocostal junction syndrome [Tietze] (principal); K50.90 Crohn's disease, unspecified, without complications; Z72.0 Tobacco use; Z79.899 Other long term (current) drug therapy
CPT/HCPCS: 71045; 80048; 84484; 84703; 85025; 85379; 93005; 96360; 99284; J7030; A4216

== ENCOUNTER 2018-12-11 16:56 | Emergency (ER) | payer MEDICAID, SELFPAY ==
[2018-12-11 16:57] VITALS: BP 138/91; PULSE 90; RESP 18; TEMP 37.1; O2SAT 99; BMI 24.2
--- NOTE | 2018-12-11 17:50 | CT_ITS ---
STUDY: CTA OF THE BRAIN REASON FOR EXAM: Female, 23 years old. Headache dizziness RADIATION DOSAGE (If Supplied By Facility): CTDIvol = ( 26.01 ) mGy, DLP = ( 1145.84 ) mGycm TECHNIQUE: CT of the head was performed without contrast CT angiography was performed with a multi-detector CT scanner. Data acquisition was obtained from the skull base through the vertex following intravenous administration of 100ML IV Isovue 370. MIP images were reconstructed from the axial data set. Post-processing of the angiographic images was performed, with multiplanar reformation and 3D reconstruction. Individualized dose optimization techniques were used for this CT. COMPARISON: None. FINDINGS: There is no acute intracranial hemorrhage, extra parenchymal fluid collections, hydrocephalus or herniation. There are ill-defined white matter and possibly cortical hypodensities in the frontal lobes, left greater than right. The skull is intact Bilateral base of skull carotids, bifurcations, anterior and middle cerebral arteries and proximal branches are patent and normal. There are small bilateral posterior commuting arteries. Posterior cerebral arteries, superior cerebellar arteries, basilar and bilateral codominant vertebral arteries are patent. Dural venous sinuses are patent. CT/CTA Head W/WO Contrast IMPRESSION: 1. Questionable findings in the frontal lobes, possibly white matter. This is incompletely characterized on CT and MR of the brain with and without contrast is recommended for more definitive assessment. One differential diagnosis possibility is multiple sclerosis. 2. Unremarkable cranial arterial and venous vasculature. Electronically Signed: Orion Alexander, at 20:12 EDT Tel , Service support ,
--- NOTE | 2018-12-11 17:50 | ED.DCSUM_ITS ---
- ER Visit Summary Date of Service: 12/11/18 Chief Complaint: Headache History of Present Illness: The patient is a 23 F presenting with headache. Patient states this started 2 months ago. She has had persistent headache for the past 2 months. She states that she has been taking Tylenol with no improvem ent. She was seen by her primary care physician yesterday. Today she states she had dizziness with no syncope. She has had blurry vision from her right eye for the past 2 months. She has been seen by ophthalmology. She has a family history of MS. Denies other complaints. Physical Examination: Vitals are stable. Patient is afebrile. Alert no acute distress. HEENT exam is unremarkable. Neck is supple. No meningismus Lungs are clear and equal bilaterally. Heart is regular rate and rhythm. Abdomen is soft nontender nondistended. Extremities are unremarkable. Skin is warm and dry. No focal neurologic deficit. NIH 0. Remainder of exam is unremarkable. Emergency Department Course and Treatment: Patient was given Reglan, Benadryl IV with improvement. CTA head shows questionable findings in the frontal lobes, possibly white matter. This is incompletely characterized on CT and MR of the brain with and without contrast is recommended for more definitive assessment. One differential diagnosis possibility is multiple sclerosis. Unremarkable cranial arterial and venous vasculature. Patient feels improved on reevaluat ion. She declines admission for MRI and further testing. Discussed with Dr. Easton who is on-call for Dr. Cazares her primary care physician. Patient will follow-up as an outpatient. Advised return to ED if worsening complaints. Disposition: Discharge home Impression: Headache, concern for MS This note was generated with [employer] dictation software. It may contain incorrect words, spelling, and punctuation that were not noted in review of the chart prior to signing ED Disposition - Plan for ED Patient: Instructions: HEADACHE, Unspecified Referrals: Torsten Cazares DO [Primary Care Provider] - Jimy Jimenes MD [STAFF PHYSICIAN] -
[2018-12-11] MEDS: DiphenhydrAMINE 50 MG/ML Syringe 25 MG IV (18:08)
[2018-12-11] MEDS: Metoclopramide 10 MG/2 ML Vial 5 MG IV (18:10)
[2018-12-11 19:25] VITALS: BP 126/76
--- NOTE | 2018-12-11 21:38 | ED.DEP ---
ED Disposition - Plan for ED Patient: Instructions: HEADACHE, Unspecified Referrals: Torsten Cazares DO [Primary Care Provider] - Jimy Jimenes MD [STAFF PHYSICIAN] -
[2018-12-11 21:52] VITALS: BP 120/80
[2018-12-11 22:08] VITALS: RESP 18
== END 2018-12-11 22:09 | disposition home or self-care (01) ==
LOC: ED 18:00
PROVIDERS: Emergency Provider Emergency Medicine; Family Provider Student in an Organized Health Care Education/Training Program; PCP Student in an Organized Health Care Education/Training Program
DX: R51 Headache (principal); H53.8 Other visual disturbances; K50.90 Crohn's disease, unspecified, without complications; Z79.899 Other long term (current) drug therapy
CPT/HCPCS: 70496; 96374; 96375; 99283; A4216

== ENCOUNTER 2019-07-31 09:53 | Emergency (ER) | payer MEDICAID, SELFPAY ==
[2019-07-31 09:54] VITALS: BP 144/91; PULSE 88; RESP 16; TEMP 36.9; BMI 24.7
--- NOTE | 2019-07-31 10:28 | CT_ITS ---
STUDY: CT ABDOMEN AND PELVIS WITHOUT CONTRAST REASON FOR EXAM: Female, 24 years old. ABD PAIN, HX CROHN''S RADIATION DOSAGE (If Supplied By Facility): CTDIvol = ( 6.56 ) mGy, DLP = ( 306.28 ) mGycm TECHNIQUE: Transaxial images were obtained from the dome of the diaphragm to the symphysis pubis without oral contrast, and without intravenous contrast. Sagittal and coronal images were reconstructed. Individualized dose optimization techniques were used for this CT. COMPARISON: 12.14.17 CT scan abdomen and pelvis FINDINGS: There are minimal stable subtle focal areas of pleural thickening in the left greater than right lung base. The visualized portions of the heart are within normal limits. Normal liver. There is non-visualization of the gallbladder, which may be secondary to either contraction or a prior cholecystectomy. Normal spleen. Normal pancreas. Normal bilateral adrenal glands. Normal right kidney. Normal left kidney. Normal visualized stomach. There is a thick-walled edematous strandy appearance of the terminal ileum and a short segment of the distal small bowel. There is mild proximal distention of the small bowel. There is moderate stool in the colon from the cecum to the sigmoid. The appendix is visualized and appears normal. Normal abdominal aorta. Normal inferior vena cava. There few nonspecific subcentimeter retroperitoneal and mesenteric lymph nodes. Normal urinary bladder. Normal visualized uterus. There is a small umbilical hernia containing fat. There is mild degenerative change in the thoracolumbar spine. The T12-L1 there is a posterior osteophyte with minimal disc bulge. There is no significant neural foraminal narrowing or central stenosis. CT/Abdomen/Pelvis without Cont IMPRESSION: Recurrent active inflammatory change within the terminal ileum with mild distention of small bowel compatible with active enteritis, most consistent with Crohn''s disease. There is no visualized adjacent abscess formation. There is trace adjacent fluid. Otherwise constipation. Status post cholecystectomy. Mild degenerative change in the thoracolumbar spine. Electronically Signed: Humera Tolbert MD at 12:42 EDT Tel , Service support ,
--- NOTE | 2019-07-31 11:10 | ED.DCSUM_ITS ---
History of Present Illness Chief Complaint: Abd Pain Informant: Patient Onset: Month(s) Maximum Severity: Mild Narrative: Patient presents complaining of lower abdominal pain that she has had really for months history of Crohn's disease she is managed by physician in the [facility] [place] office she is been unable to see them related to coronavirus issues, she had phone call visits with them explained her intermittent abdominal pain she was started on steroids which she finished Thursday she was on 20 mg a day at the end of the taper she when she stopped that she believes her pain intensified she has no ability to contact these physicians on the weekend and she came to the emergency department. She denies indicates this is typical exacerbation of her Crohn's no nausea or vomiting no fever she is never had surgery for the Crohn's has had prior colonoscopies is never been recommended that she require surgery, she was at one point time on Humira for the Crohn's but then she developed MS and that was stopped she is not on any specific therapy for the Crohn's she is eating and drinking and again bowel bladder habits are normal Past Medical History - Allergies and Home Meds Allergies/Adverse Reactions: Allergies No Known Allergies Allergy (Verified 12/11/18 16:57) Primary Care Physician: Torsten Cazares DO [Primary Care Provider] - Past Medical History: - Smoking Status: Never smoker Review of Systems ROS: - Mahoney's disease General: Denies: Chills, Fever, Sweats Eyes: Denies: Visual changes - bilaterally, Diplopia ENT: Denies: Rhinorrhea, Sore throat Cardiovascular: Denies: Chest pain, Palpitations Respiratory: Denies: Dyspnea, Cough, Dyspnea on exertion Gastrointestinal: Reports: Abdominal pain. Denies: Nausea, Vomiting, Diarrhea, Melena, Hematochezia Genitourinary: Denies: Dysuria, Hematuria, Frequency Musculoskeletal: Denies: Back pain, Extremity Pain Skin: Denies: Rash, Wounds Neurological: Denies: Headache, Weakness, Numbness Physical Exam Vital Signs/Narrative: Vital Signs Temp Pulse Resp BP 07/31/19 09:54 98.4 F 88 16 144/91 H General: Well nourished, Well developed, No Acute Distress Head: Normocephalic, Atraumatic Eyes: Perrl, EOMI ENT: Moist mucous membranes, No rhinorrhea Neck: Supple, Nontender Cardiovascular: Regular rate, Regular rhythm, No murmurs Respiratory: No distress, CTA bilaterally, Chest nontender Abdomen: Soft, Nontender, Nondistended, Normal bowel sounds, - - Abdomen is really soft there is no tenderness specifically on exam she subjectively compla ins of pain to the lower abdominal area right suprapubic and left she denies urinary symptoms denies no rebound or guarding Back: Nontender, Normal Inspection Extremities: Nontender, No edema Skin: Normal color, No rash Neurological: Alert, Oriented x3, Cranial nerves II-XII grossly intact, Normal Strength, Normal Sensation Psychological: Normal affect, Normal Mood Diagnostic/Tx/Re-eval - Medical Decision Making Differential would certainly be extensive for her given all the above in her history IV fluid screening labs CT abdomen Patient screening labs are generally unremarkable please see those results, abdominal CT shows what appears to be some enteritis terminal ileum consistent with Crohn's no other acute abnormalities appendix normal Discussed all the above with the patient she wants to go home she is comfortable discharge home she is indicating the prednisone 20 mg helped her we will give her dose now and I will give her prescription for 20 mg a day for 5 days as that helped her in the past without intention that she will contact her outpatient providers for further management options she is comfort with this plan Home stable Final impression acute exacerbation of Crohn's disease ED Disposition - Plan for ED Patient: Diagnosis: Crohn's colitis Instructions: ED Abdominal Pain Unkn Cause Fem Prescriptions: Prednisone [Deltasone] 20 mg PO DAILY #7 tab Prescription Printed Referrals: Torsten Cazares DO [Primary Care Provider] -
[2019-07-31] MEDS: 0.9% Normal Saline 1,000 ML 125 ML IV (11:37)
[2019-07-31] MEDS: Ondansetron 4 MG/2 ML Vial IV (11:38)
[2019-07-31] MEDS: morphine 8 MG/ML Syringe IV (11:38)
[2019-07-31 11:50] LABS: Mucous, Urine 0 SEEN /hpf (<or=2+); Red Blood Cells-Urine 0 SEEN /hpf (0-5)
[2019-07-31 11:55] LABS: Color, Urine Yellow (Yellow); Glucose, Dipstick Normal (Normal); Ketone-Dipstick Negative (Negative); Leukocyte Esterase-Dipstick 25 /ul (Negative); Nitrite-Dipstick Negative (Negative); Occult Blood-Urine 10 /ul (Negative); Protein-Dipstick Negative (Negative); Urine Bilirubin Dipstick Negative (Negative); Urine Clarity Clear (Clear); Urine Urobilinogen Normal (Normal)
[2019-07-31 11:55] LABS: Absolute Lymphocyte Count 0.42 X10^3/uL (0.83-4.51); Absolute Neutrophil Count 8.3 X10^3/uL (2.0-7.7); Basophil# 0.02 X10^3/uL; Basophil% 0.2 % (0-1); Eosinophil# 0.01 X10^3/uL; Eosinophils% 0.1 % (0-5); Hematocrit 36.9 % (37-47); Hemoglobin 11.5 g/dL (12.0-15.0); Lymphocyte # 0.42 X10^3/ul (4.0); Lymphocyte % 4.4 % (19-41); Mean Corp Hgb Conc 31.2 g/dL (32-36); Mean Corpuscular Hgb 29.2 pg (27.0-32.0); Mean Corpuscular Volume 93.7 fL (81-99); Mean Platelet Vol. 8.6 fl (6.2-12.0); Monocyte# 0.74 X10^3/uL; Monocyte% 7.7 % (0-10); NRBC Flagged by Analyzer 0 % (0-5); Neutrophil # 8.27 X10^3/uL (2.7-7.7); Neutrophil % 85.8 % (47-70); POSITIVE DIFFERENTIAL YES; Platelet Count 245 K/mm3 (150-450); RBC Distribution Width SD 47.8 fl (35.1-43.9); Red Blood Count 3.94 M/mm3 (4.2-5.4); White Blood Count 9.6 K/mm3 (4.4-11.0)
[2019-07-31 11:56] LABS: Differential Indicated SCAN CRITERIA MET
[2019-07-31 12:09] LABS: Internal QC Validated? YES +Cl - CLEAR BKGD; Pregnancy, Serum, hCG Quali. NEGATIVE Negative
[2019-07-31 12:11] LABS: ALB/GLOB Ratio 0.6 RATIO (0.9-2.4); AST(SGOT) 19 U/L (15-37); Alanine Aminotransfer ALT/SGPT 43 U/L (13-56); Albumin, Serum 2.8 g/dL (3.2-5.0); Alkaline Phosphatase 82 U/L (45-117); Anion Gap 6 (5-15); BUN 13 mg/dL (7-18); BUN/Creat Ratio 15.6 RATIO (10-20); Chloride 100 mmol/L (98-107); Creatinine, Serum 0.83 mg/dL (0.55-1.02); EST Glomerular Filtration Rate 88 mL/min (>60); Est Glom Filt Rate - Afr Amer 106 mL/min (>60); Estimated Creatinine Clearance 81.24 ml/min; Globulin 4.4 g/dL (2.2-4.2); Glucose 80 mg/dL (74-106); Lipase 151 U/L (73-393); Potassium 3.5 mmol/L (3.5-5.1); Protein, Total 7.2 g/dL (6.4-8.2); Sodium Level 137 mmol/L (136-145)
[2019-07-31 12:25] LABS: Bacteria 1+ /hpf (None Seen); Squamous Epithelial Cells - UA 0-5 SEEN /hpf (5-10); White Blood Cells 0-5 SEEN /hpf (0-5)
[2019-07-31] MEDS: predniSONE 20 MG Tablet PO (13:25)
[2019-07-31 13:27] VITALS: BP 123/80; PULSE 80; RESP 16; TEMP 37.2; O2SAT 99
== END 2019-07-31 13:30 | disposition home or self-care (01) ==
LOC: ED 12:48
PROVIDERS: Emergency Provider Emergency Medicine; PCP Student in an Organized Health Care Education/Training Program
DX: K50.10 Crohn's disease of large intestine without complications (principal); K59.00 Constipation, unspecified; Z79.899 Other long term (current) drug therapy; Z90.49 Acquired absence of other specified parts of digestive tract
CPT/HCPCS: 74176; 80053; 81001; 83690; 84703; 85025; 96361; 96374; 96375; 99285; J7030; A4216; J2405

== ENCOUNTER 2019-10-14 19:27 | Emergency (ER) | payer MEDICAID, SELFPAY ==
[2019-10-14 19:29] VITALS: BP 144/90; PULSE 117; RESP 18; TEMP 36.8; O2SAT 98; BMI 22.3
[2019-10-14] MEDS: 0.9% Normal Saline 1,000 ML 999 ML IV (20:25)
[2019-10-14 20:31] LABS: Bacteria 0 SEEN /hpf (None Seen); Mucous, Urine 0 SEEN /hpf (<or=2+); White Blood Cells 0 SEEN /hpf (0-5)
[2019-10-14 20:32] LABS: Absolute Neutrophil Count 5.1 X10^3/uL (2.0-7.7); Basophil# 0.04 X10^3/uL; Basophil% 0.6 % (0-1); Eosinophil# 0.12 X10^3/uL; Eosinophils% 1.7 % (0-5); Hematocrit 37.5 % (37-47); Lymphocyte % 12.8 % (19-41); Mean Corpuscular Hgb 28.3 pg (27.0-32.0); Mean Corpuscular Volume 88.4 fL (81-99); Mean Platelet Vol. 8.1 fl (6.2-12.0); Monocyte# 0.81 X10^3/uL; Monocyte% 11.6 % (0-10); NRBC Flagged by Analyzer 0 % (0-5); Neutrophil # 5.07 X10^3/uL (2.7-7.7); Neutrophil % 72.3 % (47-70); Platelet Count 570 K/mm3 (150-450); RBC Distribution Width CV 13.4 % (11.6-14.6); RBC Distribution Width SD 43.3 fl (35.1-43.9); Red Blood Count 4.24 M/mm3 (4.2-5.4)
[2019-10-14 20:34] LABS: Color, Urine Yellow (Yellow); Glucose, Dipstick Normal (Normal); Leukocyte Esterase-Dipstick Negative /ul (Negative); Nitrite-Dipstick Negative (Negative); Occult Blood-Urine 25 /ul (Negative); Protein-Dipstick 30 mg/dl (Negative); Urine Clarity Sl. Cloudy (Clear); Urine Urobilinogen 1 mg/dl (Normal)
[2019-10-14 20:38] LABS: Internal QC Validated? YES +Cl - CLEAR BKGD; Pregnancy, Urine Negative Negative; Urine Bilirubin Dipstick 1 mg/dL (Negative)
[2019-10-14 20:45] LABS: Ketone-Dipstick 150 mg/dl (Negative)
[2019-10-14 20:46] LABS: Amorphous Sediment 1+ URATE; Hyaline Cast 0-5 SEEN /lpf (0-5); Red Blood Cells-Urine 0-5 SEEN /hpf (0-5); Squamous Epithelial Cells - UA 10-25 SEEN /hpf (5-10)
[2019-10-14 20:49] LABS: ALB/GLOB Ratio 0.6 RATIO (0.9-2.4); AST(SGOT) 17 U/L (15-37); Alanine Aminotransfer ALT/SGPT 29 U/L (13-56); Albumin, Serum 3.1 g/dL (3.2-5.0); Alkaline Phosphatase 195 U/L (45-117); Anion Gap 15 (5-15); BUN 5 mg/dL (7-18); BUN/Creat Ratio 6.4 RATIO (10-20); Calcium,Total 9.5 mg/dL (8.5-10.1); Chloride 103 mmol/L (98-107); Creatinine, Serum 0.78 mg/dL (0.55-1.02); EST Glomerular Filtration Rate 95 mL/min (>60); Est Glom Filt Rate - Afr Amer 115 mL/min (>60); Estimated Creatinine Clearance 86.44 ml/min; Globulin 5.5 g/dL (2.2-4.2); Glucose 79 mg/dL (74-106); Potassium 3.6 mmol/L (3.5-5.1); Protein, Total 8.6 g/dL (6.4-8.2); Sodium Level 135 mmol/L (136-145)
--- NOTE | 2019-10-14 21:11 | ED.VIS.GEN ---
History of Present Illness Chief Complaint: Nausea/Vomiting/Diarrhea Informant: Patient Narrative: Patient is a 24-year-old female with a past medical history of Crohn's disease and MS who presents for nausea/vomiting and diarrhea. She is currently denying having any abdominal pain. She has been having 2-3 episodes of vomiting since Thursday. She did get prescribed Zofran yesterday and only had one episode of vomiting today. She does have chronic diarrhea which does not seem any worse than normal. No blood or black tarry stools. Patient was concerned because she is supposed to have a preoperative evaluation for surgery for her Crohn's disease this coming week. She felt like she is getting dehydrated. She denies any chest pain, shortness of breath or lightheadedness. No near syncopal symptoms. She denies any urinary symptoms. Denies any chance of being . Only previous abdominal surgery was for cholecystectomy and tonsils. She has not had any fevers or chills. Past Medical History - Allergies and Home Meds Allergies/Adverse Reactions: Allergies No Known Allergies Allergy (Verified 10/14/19 19:30) Primary Care Physician: Torsten Cazares DO [Primary Care Provider] - 2 Days Prior records reviewed: Yes Past Medical History: - - Crohn's disease, MS Surgical History: cholecystectomy Smoking Status: Never smoker Alcohol: None Drugs: None Review of Systems All systems negative except as indicated General: Denies: Chills, Fever, Sweats Eyes: Denies: Visual changes - bilaterally, Diplopia ENT: Denies: Rhinorrhea, Sore throat Cardiovascular: Denies: Chest pain, Palpitations Respiratory: Denies: Dyspnea, Cough, Dyspnea on exertion Gastrointestinal: Reports: Nausea, Vomiting, Diarrhea. Denies: Abdominal pain, Melena, Hematochezia Genitourinary: Denies: Dysuria, Hematuria, Frequency Musculoskeletal: Denies: Back pain, Extremity Pain Skin: Denies: Rash, Wounds Neurological: Denies: Headache, Weakness, Numbness Physical Exam Vital Signs/Narrative: Vital Signs Temp Pulse Resp BP Pulse Ox 10/14/19 19:29 98.3 F 117 H 18 144/90 H 98 Inital Vital Signs reviewed: Yes General: Well nourished, Well developed, No Acute Distress Head: Normocephalic, Atraumatic Eyes: Perrl, EOMI ENT: Moist mucous membranes, No rhinorrhea Neck: Supple, Nontender Cardiovascular: Regular rhythm, No murmurs, Tachycardia Respiratory: No distress, CTA bilaterally, Chest nontender Abdomen: Soft, Nontender, Nondistended, Normal bowel sounds Back: Nontender, Normal Inspection. Negative for: CVA tenderness Extremities: Nontender, No edema Skin: Normal color, No rash Neurological: Alert, Oriented x3, Cranial nerves II-XII grossly intact, Normal Strength, Normal Sensation Psychological: Normal affect, Normal Mood Diagnostic/Tx/Re-eval - Medical Decision Making Patient presents the emerge department for nausea/vomiting and diarrhea. She is concerned that she is being dehydrated. She denies any abdominal pain. She wanted to make sure she was not dehydrated as she has a preop evaluation coming up soon for surgery. We will check basic lab work. She was mildly tachycardic upon arrival so we will start IV fluids. Otherwise benign physical exam and she is nontoxic-appearing. Patient's lab work-up showed the patient CO2 to be low. She was given IV fluids with her tachycardia. Her heart rate did come down with this treatment. After the bolus of normal saline she is feeling much better. Her mother did come to bedside states she looks better currently. She still has Zofran at home for continued treatment. She does have close follow-up with her PCP. If she develops any worsening symptoms she is to return to the emergency department immediately. She understands and is agreeable with this plan. ED Disposition - Plan for ED Patient: Disposition: Home or Assisted Living Diagnosis: Nausea and vomiting, Dehydration Instructions: ED Dehydration Adult, ED Diet for Vomiting or Diarrhea Adult Referrals: Torsten Cazares DO [Primary Care Provider] - 2 Days
[2019-10-14 21:36] VITALS: RESP 16
[2019-10-14 21:44] VITALS: BP 126/93; PULSE 104; RESP 14; O2SAT 100
[2019-10-14 21:57] VITALS: BP 126/93; PULSE 100; RESP 14; O2SAT 100
== END 2019-10-14 21:58 | disposition home or self-care (01) ==
PROVIDERS: Emergency Provider Emergency Medicine; PCP Student in an Organized Health Care Education/Training Program
DX: R11.2 Nausea with vomiting, unspecified (principal); E86.0 Dehydration; R00.0 Tachycardia, unspecified; K50.90 Crohn's disease, unspecified, without complications; Z79.899 Other long term (current) drug therapy; Z90.49 Acquired absence of other specified parts of digestive tract
CPT/HCPCS: 80053; 81001; 81025; 85025; 96360; 99283; J7030; A4216

== ENCOUNTER 2019-10-20 11:20 | Emergency (ER) | payer MEDICAID, SELFPAY ==
[2019-10-20 11:21] VITALS: BP 134/97; PULSE 118; RESP 16; TEMP 36.3; O2SAT 100; BMI 21.9
--- NOTE | 2019-10-20 11:56 | ED.DCSUM_ITS ---
History of Present Illness Chief Complaint: Nausea/Vomiting Informant: Patient, Family Narrative: Presents to the emergency department with dehydration. Patient has Crohn's disease with multiple complications and a schedule for surgery next week in [place]. She was seen a few days ago with persistent nausea vomiting. She states she has not vomited today but she feels very dehydrated. She continues to have stool output. No history of small bowel obstruction. She has Zofran but states the prescription is for 1 tablet twice a day and it has not been effective at controlling her nausea and vomiting. She states she is urinating but it is concentrated. She states her mouth is very dry. Past Medical History - Allergies and Home Meds Allergies/Adverse Reactions: Allergies No Known Allergies Allergy (Verified 10/14/19 19:30) Primary Care Physician: Torsten Cazares DO [Primary Care Provider] - As Needed Surgical History: cholecystectomy Smoking Status: Never smoker Review of Systems General: Denies: Chills, Fever, Sweats Eyes: Denies: Visual changes - bilaterally, Diplopia ENT: Denies: Rhinorrhea, Sore throat Cardiovascular: Denies: Chest pain, Palpitations Respiratory: Denies: Dyspnea, Cough, Dyspnea on exertion Gastrointestinal: Reports: Abdominal pain, Nausea, Vomiting, Diarrhea. Denies: Melena, Hematochezia Genitourinary: Denies: Dysuria, Hematuria, Frequency Musculoskeletal: Denies: Back pain, Extremity Pain Skin: Denies: Rash, Wounds Neurological: Denies: Headache, Weakness, Numbness Physical Exam Vital Signs/Narrative: Vital Signs Temp Pulse Resp BP Pulse Ox 10/20/19 11:21 97.4 F L 118 H 16 134/97 H 100 Inital Vital Signs reviewed: Yes General: Well nourished, Well developed, No Acute Distress Head: Normocephalic, Atraumatic Eyes: Perrl, EOMI ENT: No rhinorrhea, Dry mucous membranes Neck: Supple, Nontender Cardiovascular: Regular rate, No murmurs, Tachycardia Respiratory: No distress, CTA bilaterally, Chest nontender Abdomen: Soft, Nontender, Nondistended, Normal bowel sounds Back: Nontender, Normal Inspection Extremities: Nontender, No edema Skin: Normal color, No rash Neurological: Alert, Oriented x3, Cranial nerves II-XII grossly intact, Normal Strength, Normal Sensation Psychological: Normal affect, Normal Mood Diagnostic/Tx/Re-eval Laboratory Last Values Sodium 133 mmol/L (136-145) L 10/20/19 12:07 Potassium 3.5 mmol/L (3.5-5.1) 10/20/19 12:07 Chloride 102 mmol/L (98-107) 10/20/19 12:07 Carbon Dioxide 18.0 mmol/L (21.0-32.0) L 10/20/19 12:07 Anion Gap 13 (5-15) 10/20/19 12:07 BUN 4 mg/dL (7-18) L 10/20/19 12:07 Creatinine 0.74 mg/dL (0.55-1.02) 10/20/19 12:07 Estim Creat Clear Calc 91.12 ml/min 10/20/19 12:07 Est GFR (MDRD) Af Amer 120 mL/min (>60) 10/20/19 12:07 Est GFR (MDRD) Non-Af 100 mL/min (>60) 10/20/19 12:07 BUN/Creatinine Ratio 5.4 RATIO (10-20) L 10/20/19 12:07 Glucose 86 mg/dL (74-106) 10/20/19 12:07 Calcium 9.4 mg/dL (8.5-10.1) 10/20/19 12:07 Serum , Qual NEGATIVE Negative 10/20/19 12:07 - Medical Decision Making Patient tolerated ice and water orally. Patient received 2 L of IV fluids. BMP was checked. I will write for the patient to try Phenergan at home. Follow-up with her doctors return if worsening or concerns ED Disposition - Plan for ED Patient: Diagnosis: Crohn disease, Dehydration, Vomiting Prescriptions: proMETHazine tablet [Phenergan tablet] 25 mg PO Q8H PRN PRN #20 tab PRN Reason: Vomiting Transmission Status: Received by [id number] Referrals: Torsten Cazares DO [Primary Care Provider] - As Needed Additional Instructions: If you are using Phenergan do not use Zofran with it. Phenergan may cause you to feel internally stimulated/excited but can also cause drowsiness.
[2019-10-20] MEDS: 0.9% Normal Saline 1,000 ML 1000 ML IV ×2 (12:10→13:13)
[2019-10-20 12:30] LABS: Anion Gap 13 (5-15); BUN 4 mg/dL (7-18); BUN/Creat Ratio 5.4 RATIO (10-20); Calcium,Total 9.4 mg/dL (8.5-10.1); Chloride 102 mmol/L (98-107); Creatinine, Serum 0.74 mg/dL (0.55-1.02); EST Glomerular Filtration Rate 100 mL/min (>60); Est Glom Filt Rate - Afr Amer 120 mL/min (>60); Estimated Creatinine Clearance 91.12 ml/min; Glucose 86 mg/dL (74-106); Potassium 3.5 mmol/L (3.5-5.1); Sodium Level 133 mmol/L (136-145)
[2019-10-20 12:42] LABS: Internal QC Validated? YES +Cl - CLEAR BKGD; Pregnancy, Serum, hCG Quali. NEGATIVE Negative
[2019-10-20 14:27] VITALS: PULSE 64; RESP 18; O2SAT 98
[2019-10-20] MEDS: Morphine 2 MG/ML Syringe IV (14:28)
== END 2019-10-20 14:50 | disposition home or self-care (01) ==
LOC: ED 12:23
PROVIDERS: Emergency Provider Emergency Medicine; PCP Student in an Organized Health Care Education/Training Program
DX: K50.90 Crohn's disease, unspecified, without complications (principal); E86.0 Dehydration; R11.2 Nausea with vomiting, unspecified; Z79.899 Other long term (current) drug therapy; Z90.49 Acquired absence of other specified parts of digestive tract
CPT/HCPCS: 80048; 84703; 96361; 96374; 99282; J7030; A4216

== ENCOUNTER 2020-06-10 11:28 | Emergency (ER) | payer MEDICAID, SELFPAY ==
[2020-06-10 11:29] VITALS: BP 142/98; PULSE 83; RESP 16; TEMP 35.9; O2SAT 99; BMI 25.2
--- NOTE | 2020-06-10 11:46 | CT_ITS ---
STUDY: CT ABDOMEN AND PELVIS WITHOUT CONTRAST REASON FOR EXAM: Female, 25 years old. right flank pain RADIATION DOSAGE (If Supplied By Facility): CTDIvol = ( 6.15 ) mGy, DLP = ( 285.73 ) mGycm TECHNIQUE: Transaxial images were obtained from the dome of the diaphragm to the symphysis pubis without oral contrast, and without intravenous contrast. Sagittal and coronal images were reconstructed. Individualized dose optimization techniques were used for this CT. COMPARISON: 07/31/2019 FINDINGS: The visualized lung bases are unremarkable. The visualized portions of the heart are within normal limits. Normal liver. There is non-visualization of the gallbladder, which may be secondary to either contraction or a prior cholecystectomy. Normal spleen. Normal pancreas. Normal bilateral adrenal glands. Normal right kidney. Normal left kidney. Normal visualized stomach. Normal small intestine. Normal colon. There are surgical clips in the region of the appendix consistent with a prior appendectomy. Normal abdominal aorta. Normal inferior vena cava. Normal retroperitoneum. Normal urinary bladder. Normal abdominal wall. Normal osseous structures. CT/Abdomen/Pelvis without Cont IMPRESSION: Normal unenhanced CT of the abdomen and pelvis. No renal or ureteral stone. Electronically Signed: Haim Urias MD at 13:23 EDT Tel , Service support ,
--- NOTE | 2020-06-10 11:46 | ED.DCSUM_ITS ---
- ER Visit Summary Date of Service: 06/10/20 Chief Complaint: [Back and right flank pain] History of Present Illness: The patient is a 25 F [presents to the emergency department today with complaint of back pain for the last 2 weeks. Patient states the pains been continuous however it started to radiate around to the right side of her abdomen. Pain is worse with certain positions. She denies fever. She denies urinary symptoms. Patient initially felt her symptoms may be due to starting her menstrual period but then she stopped her period and she still continuing to have the pain. Patient does have history of Crohn's with partial bowel resection in September 2019. Patient states the pain feels different than her Crohn's flareups. Patient also has history of MS. Patient denies any trauma to her back. She denies any pain radiating down her legs. She denies loss of bowel or bladder function. She denies weakness in the extremities.] Physical Examination: [HEENT-PERRLA, EOMI. Cranial nerves II through XII grossly intact. TMs clear. Mucous membranes moist. No adenopathy. Cardiovascular-regular rate and rhythm without murmur or ectopy Lungs-clear to auscultation, chest wall stable without crepitus or subcu emphysema Abdomen-normoactive bowel sounds, soft, nontender, no rebound or rigidity, no peritoneal signs. Back exam-no real tenderness over the thoracic or lumbar spine. She does have tenderness palpation of bilateral lower lumbar paraspinal musculature as well as CVA tenderness bilaterally. Patient has negative straight leg raises. Deep tendon reflexes are plus out of 4 bilaterally. Patient has normal strength in the lower extremities. Extremities-intact ?4, normal range of motion, normal pulses, atraumatic] Test Results: [CBC with differential was normal. Chemistries unremarkable. Urinalysis normal. hCG was negative. CT flank showed nothing acute.] Emergency Department Course and Treatment: [The line established on arrival.] Treatment Plan: [Patient will be given a prescription for Flexeril and a few Clifford for pain. Patient advised to follow-up with her primary care physician within next 5 to 7 days. Patient to return if worsening pain, weakness in extremities, change in bowel or bladder function, or condition should worsen anyway.] Disposition: [Discharged home in stable condition] Impression: [Back pain] This note was generated with [employer] dictation software. It may contain incorrect words, spelling, and punctuation that were not noted in review of the chart prior to signing ED Disposition - Plan for ED Patient: Referrals: Torsten Cazares DO [Primary Care Provider] -
[2020-06-10 12:30] LABS: Red Blood Cells-Urine 0 SEEN /hpf (0-5); Squamous Epithelial Cells - UA 0 SEEN /hpf (5-10); White Blood Cells 0 SEEN /hpf (0-5)
[2020-06-10 12:33] LABS: Absolute Lymphocyte Count 0.42 X10^3/uL (0.83-4.51); Absolute Neutrophil Count 3.8 X10^3/uL (2.0-7.7); Basophil# 0.03 X10^3/uL; Basophil% 0.6 % (0-1); Eosinophil# 0.04 X10^3/uL; Eosinophils% 0.8 % (0-5); Hematocrit 39.6 % (37-47); Hemoglobin 12.7 g/dL (12.0-15.0); Lymphocyte # 0.42 X10^3/ul (4.0); Lymphocyte % 8.9 % (19-41); Mean Corp Hgb Conc 32.1 g/dL (32-36); Mean Corpuscular Hgb 30.3 pg (27.0-32.0); Mean Corpuscular Volume 94.5 fL (81-99); Mean Platelet Vol. 8.9 fl (6.2-12.0); Monocyte% 8.4 % (0-10); NRBC Flagged by Analyzer 0 % (0-5); Neutrophil # 3.84 X10^3/uL (2.7-7.7); Neutrophil % 81.1 % (47-70); POSITIVE DIFFERENTIAL YES; Platelet Count 289 K/mm3 (150-450); RBC Distribution Width CV 12.6 % (11.6-14.6); RBC Distribution Width SD 43.7 fl (35.1-43.9); Red Blood Count 4.19 M/mm3 (4.2-5.4); White Blood Count 4.7 K/mm3 (4.4-11.0)
[2020-06-10 12:35] LABS: Color, Urine Yellow (Yellow); Glucose, Dipstick Normal (Normal); Ketone-Dipstick Negative (Negative); Leukocyte Esterase-Dipstick Negative /ul (Negative); Nitrite-Dipstick Negative (Negative); Occult Blood-Urine Negative /ul (Negative); Protein-Dipstick Negative (Negative); Urine Bilirubin Dipstick Negative (Negative); Urine Clarity Sl. Cloudy (Clear); Urine Urobilinogen Normal (Normal)
[2020-06-10 12:35] LABS: Differential Indicated SCAN CRITERIA MET
[2020-06-10 12:42] LABS: Bacteria RARE /hpf (None Seen); Mucous, Urine RARE /hpf (<or=2+)
[2020-06-10 12:43] LABS: Internal QC Validated? YES +Cl - CLEAR BKGD; Pregnancy, Serum, hCG Quali. NEGATIVE Negative
[2020-06-10 12:45] LABS: Anion Gap 7 (5-15); BUN 8 mg/dL (7-18); BUN/Creat Ratio 9.4 RATIO (10-20); Calcium,Total 9.4 mg/dL (8.5-10.1); Chloride 104 mmol/L (98-107); Creatinine, Serum 0.86 mg/dL (0.55-1.02); EST Glomerular Filtration Rate 85 mL/min (>60); Est Glom Filt Rate - Afr Amer 102 mL/min (>60); Estimated Creatinine Clearance 77.71 ml/min; Glucose 82 mg/dL (74-106); Potassium 3.7 mmol/L (3.5-5.1); Sodium Level 138 mmol/L (136-145)
--- NOTE | 2020-06-10 13:44 | ED.DEP ---
ED Disposition - Plan for ED Patient: Instructions: ED Back Spasm, No Trauma Prescriptions: cycloBENZAPRine HCl [Flexeril] 10 mg PO TID PRN #20 tab PRN Reason: Muscle Spasm Transmission Status: Pending to [id number] Hydrocodone Bitart/Apap 5-325 [[place] 5MG-325MG] 1 tablet PO Q4H PRN PRN 2 Days #10 tablet PRN Reason: Pain Transmission Status: Sent to [id number] Referrals: Torsten Cazares DO [Primary Care Provider] - 5-7 Days
== END 2020-06-10 13:51 | disposition home or self-care (01) ==
LOC: ED 11:55
PROVIDERS: Emergency Provider Emergency Medicine; PCP Student in an Organized Health Care Education/Training Program
DX: M54.9 Dorsalgia, unspecified (principal); K50.90 Crohn's disease, unspecified, without complications; Z79.899 Other long term (current) drug therapy
CPT/HCPCS: 74176; 80048; 81001; 84703; 85025; 99283; A4216

== ENCOUNTER → 2023-11-04 | Outpatient (CLI) | payer MEDICAID, SELFPAY ==
--- NOTE | 2023-11-04 16:51 | RAD_ITS ---
INDICATION: Pain after lifting heavy boxes EXAMINATION/TECHNIQUE: X-RAY - XR Spine Lumbar 2 or 3 Views COMPARISON: None. FINDINGS: VERTEBRAE: Preserved vertebral body height. No fracture. No spondylolisthesis. Preservation of the normal lumbar lordosis. No significant facet arthropathy. DISCS: Mild disc space narrowing at L4-5 and L5-S1. INCLUDED ABDOMEN: Included bowel gas pattern is non-obstructive. RAD/Lumbar Spine 2 or 3 Views IMPRESSION: Mild degenerative disc changes. No acute bony abnormality. Electronically Signed: Michael Escudero MD at 17:35 EDT ,
== END | disposition home or self-care (01) ==
LOC: MTRAD 16:43
PROVIDERS: PCP Student in an Organized Health Care Education/Training Program; Referring Provider Physician Assistant; Visit Provider Physician Assistant
DX: M54.50 Low back pain, unspecified (principal)
CPT/HCPCS: 72100

== ENCOUNTER 2024-01-25 15:30 | Outpatient (RCR) | payer OTHER, MEDICAID, SELFPAY ==
--- NOTE | 2023-11-12 18:32 | HP.PTEVAL_ITS ---
Patient's Visit Information Visit Information Visit Information: MATTY HANSON is a 28 year old F referred to Physical Therapy by MICHA pSencer with a diagnosis of LBP. Date of Evaluation: 11/11/23 Physical Therapist: Harsha Urrutia, PT, ATC Visit Plan Frequency: 2-3x /Week Duration: 4-6 Weeks Plan: REIL, core stab ex's, postural edu, and HEP Subjective Subjective: Pt reports she was picking up a 50# bag at work when she experienced a sudden, severe pain. Pt notes she was severely limited the rest of that day and needed to be carried into her house by her brother after work. Pt reports it has taken this long to get therapy approved through [facility]. Pt reports her pain is better now that i8t has been 2 weeks, but notes she still has a lot of pain. Pt reports she is back to work, but on a 20# lifting restriction. Pt reports her LBP is centralized, but will go down through the glutes and B legs to the mid calf region. Pt reports she has occasional sleep difficulty secondary to pain at this time. Pt denies PMHx of LBP prior to this episode. Pt reports she has had xrays which revealed no significant findings. Pt reports bending forward still increases her pain. Pt reports icing is the only thing that helps with pain right now. 5/10 LBP while sitting here at rest, 7/10 pain when at worst (when she was sitting on a toilet and reached forward for toilet paper. Pain LBP: Pain Intensity (Out of 10): 5 Pain Intensity Range: 7 Objective Objective: Neuro: B LE sensation is WNL to light touch. B patellar reflex= 2/3 MMT: B LE's are equal when compared bilaterally ROM: Pt is minimally limited with ext ROM. All other ranges are WNL Repeated movements: REIL decreased pain. RFIS increased pain. Balance/Special Test Scores Oswestry Low Back Score: 5 Goals Goal 1:: Decrease LBP x 50% to aid with sleep Goal Time Frame: 4-6 Weeks Goal 2:: Decrease the frequency and intensity of B LE radiculopathy x 50% to aid with sleep Goal Time Frame: 4-6 Weeks Goal 3:: I with HEP Goal Time Frame: 4-6 Weeks Rehabilitation Potential Physical Therapy Diagnosis: Pt has LBP, limited ext ROM, and occasional B LE r adiculopathy secondary to L/S disc derrangement Rehabilitation Potential: Good Anticipated Interventions Patient/Client Instruction: Educate patient on: Condition and Plan of Care For the Purpose of:: To improve self management Therapeutic Exercise to Include: Strength training, Postural training, Flexibilty training, Dynamic Lumbar Stabilization and Jessika Exercises For the Purpose of:: To decrease pain, To increase ROM and To improve muscle performance and motor function Text: Thank you for the opportunity to evaluate your patient. For Medicare and Medicare HMO plans, please review the plan of care and approve it. It will need to be FAXED BACK to us at [phone] for Medicare purposes. For Medicare only, by signing this I certify the plan of care. Please let me know if there are questions or concerns regarding this plan of care. Physician Signature: Date:
--- NOTE | 2023-12-21 15:32 | HP.PTREVAL ---
Re-Evaluation Intro: MICHA Spencer, It has been my pleasure to treat MATTY HANSON over the last 8 visits for LBP. Please see the progress note below for an update on the physical therapy plan of care! Subjective Subjective: Pt reports she has been doing well, but then had to lift a little heavier weight at work today and is sore now Objective Objective/Function: LBP ranges from 3-5/10 Pt reports no B LE radiculopathy for one week Pt reports she is still limited with lifting activity as she experiences pain with lifting objects at work Plan Plan Plan: Attempt to get approval for 12 more PT visits in an attempt to increase core stability so that pt can return to work at her premorbid level of function Balance/Gait/Functional tests Balance/Special Test Scores Oswestry Low Back Score: 5 Goals Goals Goal 1:: Decrease LBP x 50% to aid with sleep Goal Time Frame: 4-6 Weeks Goal Progress: Progressing Goal 2:: Decrease the frequency and intensity of B LE radiculopathy x 50% to aid with sleep Goal Time Frame: 4-6 Weeks Goal Progress: Goal Met Goal 3:: I with HEP Goal Time Frame: 4-6 Weeks Goal Progress: Progressing Goal 4:: Pt will be able to return to work and perform all required work tasks with no increase in pain Goal Time Frame: 4-6 Weeks Goal Progress: New goal Anticipated Interventions Anticipated Interventions Patient/Client Instruction: Educate patient on: Condition and Plan of Care For the Purpose of:: To improve self management Therapeutic Exercise to Include: Strength training, Postural training, Flexibilty training, Dynamic Lumbar Stabilization and Jessika Exercises For the Purpose of:: To decrease pain, To increase ROM and To improve muscle performance and motor function Re-Evaluation Ending Re-evaluation ending: Please do not hesitate to contact me at [phone] by phone or if you have questions or concerns regarding this new plan of care! Sincerely, Harsha Urrutia, PT, ATC
== END 2024-01-25 17:04 | disposition home or self-care (01) ==
LOC: PT 15:30
PROVIDERS: PCP Student in an Organized Health Care Education/Training Program; Referring Provider Physician Assistant; Visit Provider Physician Assistant
DX: S39.012D Strain of muscle, fascia and tendon of lower back, subsequent encounter (principal)
CPT/HCPCS: 97110; 97161; 97530